=== PATIENT | female | born 1990 | race Caucasian/White ===

== ENCOUNTER 2023-02-07 20:01 | Observation (INO) ==
[2023-02-07] MEDS ORDERED: KETOROLAC TROMETHAMINE 15 MG/ML VIAL IV STA (20:16)
[2023-02-07] MEDS ORDERED: ONDANSETRON INJ 2 MG/ML 2 ML VIAL IV STA (20:16)
[2023-02-07] MEDS ORDERED: MoRPHine SULFATE 2 MG/ML CARP IV STA (20:16)
[2023-02-07] MEDS ORDERED: SODIUM CHLORIDE 0.9% 1000ML 1,000 ML IV STA (20:16)
--- NOTE | 2023-02-07 20:21 | Emergency Department Note ---
Impression & Plan RUQ abdominal pain, Leukocytosis, Vomiting, Hematuria, Hypertension ED Provider Note NAME: NGOC HARRINGTON AGE: 32 SEX: F : 1990 ARRIVES VIA: Walk-In INFORMANT: [Patient] ED PROVIDER(S): [Cyril Barnard MD] CHIEF COMPLAINT: Abdominal pain HISTORY OF PRESENT ILLNESS: The patient is a 32-year-old female who states that she woke up this morning with some upper abdominal pain. She felt better after some Tylenol but then things worsened in the midday and throughout this afternoon. The pain is going into her back and mostly on the right. She vomited when she got here to the ED. There has been no fever, no cough or congestion or shortness of breath. No diarrhea or urinary complaints. The patient has had a kidney stone before for which she required lithotripsy. The patient admits that she was at the [place] [facility] earlier but was not seen, she left there and came to our hospital. Of note, the patient has a history of an elevated white blood cell count, she has been referred to hematology. PMHx/PSHx: See Below SOCIAL HISTORY: See Below. PHYSICAL EXAM: GENERAL: Patient is in no acute distress. HEENT: No acute trauma, normocephalic atraumatic, mucous membranes moist, no nasal congestion. NECK: No stridor, no adenopathy, no meningismus, trachea is midline. LUNGS: Clear to auscultation bilaterally, no wheeze, no rhonchi, breath sounds equal. HEART: Without murmurs gallops or rubs, regular rate and rhythm. ABDOMEN: Soft, moderately tender in the right upper quadrant, no distention. No peritonitis. EXTREMITIES: No cyanosis or edema, full range of motion of all the joints w ithout pain or difficulty, no signs for acute trauma. NEUROLOGIC: Oriented x 3, no acute motor or sensory deficits, no focal weakness. SKIN: No rash, no jaundice, no diaphoresis. Back: No flank discomfort with percussion. DIFFERENTIAL DIAGNOSIS: Biliary colic, acute cholecystitis, pancreatitis, renal colic, UTI, appendicitis, gastritis, ulcer, among others. EMERGENCY DEPARTMENT COURSE/PROCEDURES: Prior/Outside records reviewed: None. ECG per my interpretation: Indication was abdominal pain. The ECG shows a normal sinus rhythm with a rate of 87. There is some baseline artifact. There is no ST elevation, no PVCs but the QTc is 469 Continuous Cardiac Monitoring per my interpretation: An order was placed for continuous cardiac monitoring. The monitor shows a rate of 88 with normal sinus rhythm. MEDICAL DECISION MAKING: There is a moderate leukocytosis, this could be consistent with infection or potentially just her pain and vomiting. There was a normal hemoglobin. Platelet count slightly elevated at 468. No renal failure or significant electr olyte abnormality. No concerning liver enzyme elevation. No evidence for pancreatitis. testing was negative. ECG showed a normal sinus rhythm, no ischemia. Cardiac enzyme testing x1 was not consistent with acute cardiac injury. Urinalysis showed some contamination and some hematuria. No findings of infection. COVID test returned negative. Chest film per my review does not show mediastinal widening, pneumonia or pneumothorax. There was no free air. Gallbladder and renal ultrasounds were ordered. On exam, the patient was tender in the right upper quadrant. She was hypert ensive. Patient received IV saline, 1 L. She received IV Zofran, IV Toradol and IV morphine. Additional IV morphine was ordered as needed. She was given IV labetalol for her elevated blood pressure. The patient's ultrasound results are still pending. At this point, the case will be assumed by Dr. Magallon at the change of shift. Of note, the patient is feeling improved since being medicated. She still has some pain in the right upper quadrant but it is less intense compared to when she first arrived. No further vomiting. DISPOSITION: Currently still a patient in our ED. Past Med/Surg History Medical History COVID Hypertension Obesity Surgical History (Updated 06/06/21 @ 07:07 by Santino De Guzman) No significant past surgical history Social History Smoking Status: Never smoker Preferred Language: Portuguese marital status: current occupational status: employed Feels Safe at Home: Yes Allergies Allergies Allergy/AdvReac Type Severity Reaction Status Date / Time No Known Allergies Allergy Unverified 06/05/21 19:58 Home Meds Home Medications Medication Instructions Recorded Confirmed amlodipine 10 mg tablet 10 mg PO DAILY 06/05/21 02/07/23 atorvastatin 10 mg tablet 10 mg PO DAILY 06/05/21 02/07/23 hydrochlorothiazide 12.5 mg capsule 12.5 mg PO DAILY 06/05/21 02/07/23 losartan 50 mg tablet 50 mg PO DAILY 06/05/21 02/07/23 norgestimate 0.18 mg/0.215 mg/0.25 1 tab PO DAILY 06/05/21 02/07/23 mg-ethinyl estradiol 25 mcg tablet ([id number]) Results & Data (ED) Vital Signs Vital Signs - 24 hr 02/07/23 20:04 02/07/23 21:02 02/07/23 21:01 Temperature 36.5 C Temperature Source Temporal Artery Scan Pulse Rate 111 H 85 87 Pulse Rate from SpO2 Sensor Pulse Rhythm Regular Respiratory Rate 18 Respiratory Effort / Characteristics Non-Labored Spontaneous Respiratory Depth Normal Respiratory Pattern Regular Blood Pressure 174/111 H Blood Pressure Mean 132 Blood Pressure Position Sitting Pulse Oximetry 99 97 Oxygen Delivery Method Room Air Sepsis Recent Fever Within 48 Hours No Sepsis New/Unexplained Change in Mental Status N/A Sepsis Action Taken by Nursing No Action Required 02/07/23 21:02 02/07/23 21:02 02/07/23 21:10 Temperature Temperature Source Pulse Rate 91 H 87 Pulse Rate from SpO2 Sensor 86 Pulse Rhythm Respiratory Rate 17 27 H Respiratory Effort / Characteristics Respiratory Depth Respiratory Pattern Blood Pressure 178/114 H Blood Pressure Mean 135 Blood Pressure Position Pulse Oximetry 97 Oxygen Delivery Method Room Air Sepsis Recent Fever Within 48 Hours Sepsis New/Unexplained Change in Mental Status Sepsis Action Taken by Nursing 02/07/23 21:30 02/07/23 21:30 02/07/23 22:00 Temperature Temperature Source Pulse Rate 76 Pulse Rate from SpO2 Sensor 77 Pulse Rhythm Respiratory Rate 22 Respiratory Effort / Characteristics Respiratory Depth Respiratory Pattern Blood Pressure 154/105 H 154/100 H Blood Pressure Mean 128 116 Blood Pressure Position Pulse Oximetry 96 Oxygen Delivery Method Room Air Sepsis Recent Fever Within 48 Hours Sepsis New/Unexplained Change in Mental Status Sepsis Action Taken by Nursing 02/07/23 22:00 Temperature Temperature Source Pulse Rate 73 Pulse Rate from SpO2 Sensor 74 Pulse Rhythm Respiratory Rate 20 Respiratory Effort / Characteristics Respiratory Depth Respiratory Pattern Blood Pressure Blood Pressure Mean Blood Pressure Position Pulse Oximetry 95 Oxygen Delivery Method Room Air Sepsis Recent Fever Within 48 Hours Sepsis New/Unexplained Change in Mental Status Sepsis Action Taken by Usp Medications Current Medication List: was personally reviewed by me Laboratory Data Attestation: I reviewed the patient's lab results. 02/07/23 20:53 02/07/23 20:53 Lab Results 02/07/23 02/07/23 02/07/23 Range/Units 20:25 20:25 20:53 WBC (4.8-10.8) K/ul RBC (4.20-5.40) M/uL Hgb (12.0-16.0) g/dl Hct (37.0-47.0) % MCV (80.0-100.0) fL MCH (25.0-34.0) pg MCHC (32.0-36.0) g/dL RDW Std Deviation (36.4-46.3) fL RDW Coeff of Marnie (11.5-14.5) % Plt Count (130-400) K/uL MPV (9.4-12.4) fL Immature Gran % (Auto) % Neut % (Auto) % Lymph % (Auto) % [place] % (Auto) % Eos % (Auto) % Baso % (Auto) % Neut # (Auto) (1.40-6.50) K/uL Lymph # (Auto) (1.2-3.4) K/uL [place] # (Auto) (0.11-0.59) K/uL Eos # (Auto) (0-0.50) K/uL Baso # (Auto) (0-0.2) K/uL Immature Gran # (Auto) (0.01-0.20) K/uL Sodium (136-145) mmol/L Potassium (3.5-5.1) mmol/L Chloride (98-107) mmol/L Carbon Dioxide (21-32) mmol/L Anion Gap (3-11) BUN (6-23) mg/dl Creatinine (0.6-1.2) mg/dl Est Cr Clr Drug Dosing ml/min Est GFR ( Amer) ml/min Est GFR (Non-Af Amer) ml/min BUN/Creatinine Ratio (10-20) Glucose (70-99(Fasting)) mg/dl Calcium (8.6-10.3) mg/dl Total Bilirubin (0.2-1.0) mg/dl AST (13-39) U/L ALT (7-52) U/L Alkaline Phosphatase (34-104) U/L Troponin I High Sens (0-14) pg/ml Total Protein (6.0-8.3) gm/dl Albumin (3.4-5.0) gm/dl Globulin (2.5-4.0) gm/dl Albumin/Globulin Ratio (0.9-2) Lipase (11-82) U/L HCG, Qual Negative (Negative) Urine Color Yellow Urine Appearance Cloudy A (Clear) Urine pH 5.0 (4.5-7.5) Ur Specific [place] 1.023 (1.000-1.030) Urine Protein 2+ H (Negative) Urine Glucose (UA) Negative (Negative) Urine Ketones Negative (Negative) Urine Blood 3+ H (Negative) Urine Nitrite Negative (Negative) Urine Bilirubin Negative (Negative) Urine Urobilinogen Negative (Negative) Ur Leukocyte Esterase Negative (Negative) Urine WBC (Auto) 1-5 (0-5) /hpf Urine RBC (Auto) 5-10 H (0-4) /hpf U Hyaline Cast (Auto) 1-5 (0-5) /lpf U Epithel Cells (Auto) >30 H (0-5) /lpf Urine Bacteria (Auto) Negative (Negative) Urine Yeast Not Reportable SARS-CoV-2, RNA, NAAT NEGATIVE (NEGATIVE) 02/07/23 02/07/23 Range/Units 20:53 20:53 WBC 17.19 H (4.8-10.8) K/ul RBC 5.87 H (4.20-5.40) M/uL Hgb 14.8 (12.0-16.0) g/dl Hct 44.3 (37.0-47.0) % MCV 75.5 L (80.0-100.0) fL MCH 25.2 (25.0-34.0) pg MCHC 33.4 (32.0-36.0) g/dL RDW Std Deviation 36.4 (36.4-46.3) fL RDW Coeff of Marnie 13.6 (11.5-14.5) % Plt Count 468 H (130-400) K/uL MPV 8.5 L (9.4-12.4) fL Immature Gran % (Auto) 0.3 % Neut % (Auto) 85.0 % Lymph % (Auto) 9.9 % [place] % (Auto) 4.2 % Eos % (Auto) 0.2 % Baso % (Auto) 0.4 % Neut # (Auto) 14.59 H (1.40-6.50) K/uL Lymph # (Auto) 1.71 (1.2-3.4) K/uL [place] # (Auto) 0.72 H (0.11-0.59) K/uL Eos # (Auto) 0.04 (0-0.50) K/uL Baso # (Auto) 0.07 (0-0.2) K/uL Immature Gran # (Auto) 0.06 (0.01-0.20) K/uL Sodium 137 (136-145) mmol/L Potassium 3.9 (3.5-5.1) mmol/L Chloride 101 (98-107) mmol/L Carbon Dioxide 23 (21-32) mmol/L Anion Gap 13 H (3-11) BUN 15 (6-23) mg/dl Creatinine 0.80 (0.6-1.2) mg/dl Est Cr Clr Drug Dosing 123.1 ml/min Est GFR ( Amer) 111.5 ml/min Est GFR (Non-Af Amer) 96.2 ml/min BUN/Creatinine Ratio 18.8 (10-20) Glucose 135 H (70-99(Fasting)) mg/dl Calcium 10.0 (8.6-10.3) mg/dl Total Bilirubin 0.6 (0.2-1.0) mg/dl AST 26 (13-39) U/L ALT 22 (7-52) U/L Alkaline Phosphatase 101 (34-104) U/L Troponin I High Sens 3.2 (0-14) pg/ml Total Protein 8.5 H (6.0-8.3) gm/dl Albumin 4.2 (3.4-5.0) gm/dl Globulin 4.3 H (2.5-4.0) gm/dl Albumin/Globulin Ratio 1.0 (0.9-2) Lipase 15 (11-82) U/L HCG, Qual (Negative) Urine Color Urine Appearance (Clear) Urine pH (4.5-7.5) Ur Specific [place] (1.000-1.030) Urine Protein (Negative) Urine Glucose (UA) (Negative) Urine Ketones (Negative) Urine Blood (Negative) Urine Nitrite (Negative) Urine Bilirubin (Negative) Urine Urobilinogen (Negative) Ur Leukocyte Esterase (Negative) Urine WBC (Auto) (0-5) /hpf Urine RBC (Auto) (0-4) /hpf U Hyaline Cast (Auto) (0-5) /lpf U Epithel Cells (Auto) (0-5) /lpf Urine Bacteria (Auto) (Negative) Urine Yeast SARS-CoV-2, RNA, NAAT (NEGATIVE) Administered Medications Discontinued Medications Sodium Chloride (Nss 1000ml) 1,000 mls @ 999 mls/hr IV .Q1H1M STA Stop: 02/07/23 21:16 Last Admin: 02/07/23 20:57 Dose: 999 mls/hr Documented By: Ketorolac Tromethamine (Ketorolac Tromethamine 15 Mg/Ml Vial) 15 mg IV NOW STA Stop: 02/07/23 20:17 Last Admin: 02/07/23 20:57 Dose: 15 mg Documented By: Morphine Sulfate (Morphine Sulfate 2 Mg/Ml Carp) 2 mg IV NOW STA Stop: 02/07/23 20:17 Last Admin: 02/07/23 20:57 Dose: 2 mg Documented By: Ondansetron HCl (Ondansetron Inj 2 Mg/Ml 2 Ml Vial) 4 mg IV NOW STA Stop: 02/07/23 20:17 Last Admin: 02/07/23 20:57 Dose: 4 mg Documented By: Imaging Data My Impression: Chest x-ray: Per my review, there is no mediastinal widening, pneumonia, pneumothorax or free air. Discharge Plan Visit Data Chief Complaint: Abdominal Pain Stated Complaint: ABDOMINAL PAIN RADIATING INTO BACK ED Provider: Cyril Barnard Discharge Problem: RUQ abdominal pain, Leukocytosis, Vomiting, Hematuria, Hypertension Patient Disposition: Still a Patient Condition: Good Forms Stand Alone Forms: My [facility] [employer] Prescriptions Prescriptions: No Action atorvastatin 10 mg tablet 10 mg PO DAILY amlodipine 10 mg tablet 10 mg PO DAILY hydrochlorothiazide 12.5 mg capsule 12.5 mg PO DAILY norgestimate-ethinyl estradiol [[id number]] 0.18/0.215/0.25 mg-25 mcg tablet 1 tab PO DAILY losartan 50 mg tablet 50 mg PO DAILY Referrals Referrals: Yanni Colvin PA-C [Primary Care Provider] -
[2023-02-07 20:41] LABS: Appearance Urine Cloudy (Clear); Bacteria Urine Automated Negative (Negative); Bilirubin Urine Negative (Negative); Blood Urine 3+ (Negative); Color Urine Yellow; Epithelial Cell Urine Auto >30 /lpf (0-5); Glucose Urine UA Negative (Negative); Ketones Urine Negative (Negative); Leukocyte Esterase Urine Negative (Negative); Nitrite Urine Negative (Negative); Protein Urine 2+ (Negative); Specific Gravity Urine 1.023 (1.000-1.030); Urobilinogen Urine Negative (Negative)
[2023-02-07 21:27] LABS: Pregnancy Test, Serum Negative (Negative)
[2023-02-07 21:30] LABS: Basophils # (auto) 0.07 K/uL (0-0.2); Basophils % (auto) 0.4 %; Eosinophils # (auto) 0.04 K/uL (0-0.50); Eosinophils % (auto) 0.2 %; Hematocrit (blood only) 44.3 % (37.0-47.0); Hemoglobin 14.8 g/dl (12.0-16.0); Immature Granulocytes # (auto) 0.06 K/uL (0.01-0.20); Immature Granulocytes % (auto) 0.3 %; Lymphocytes # (auto) 1.71 K/uL (1.2-3.4); Lymphocytes % (auto) 9.9 %; Mean Corpuscular Hemoglobin 25.2 pg (25.0-34.0); Mean Corpuscular Hgb Conc 33.4 g/dL (32.0-36.0); Mean Corpuscular Volume 75.5 fL (80.0-100.0); Mean Platelet Volume 8.5 fL (9.4-12.4); Monocytes # (auto) 0.72 K/uL (0.11-0.59); Monocytes % (auto) 4.2 %; Neutrophils # (auto) 14.59 K/uL (1.40-6.50); Platelet Count 468 K/uL (130-400); RDW Coefficient of Variation 13.6 % (11.5-14.5); RDW Standard Deviation 36.4 fL (36.4-46.3); Red Blood Count 5.87 M/uL (4.20-5.40); White Blood Count 17.19 K/ul (4.8-10.8)
[2023-02-07 21:37] LABS: Albumin Level 4.2 gm/dl (3.4-5.0); BUN Creatinine Ratio 18.8 (10-20); Bilirubin,Total 0.6 mg/dl (0.2-1.0); Creatinine Clr Calc Pharmacy 123.1 ml/min; Est GFR (African American) 111.5 ml/min; Est GFR (Non-African American) 96.2 ml/min; Globulin 4.3 gm/dl (2.5-4.0); Potassium 3.9 mmol/L (3.5-5.1); Total Protein 8.5 gm/dl (6.0-8.3)
[2023-02-07 21:43] LABS: Troponin I High Sensitivity 3.2 pg/ml (0-14)
[2023-02-07] MEDS ORDERED: LABETALOL HCL IV 5 MG/ML 20ML IV STA (21:49)
[2023-02-07] MEDS: MoRPHine SULFATE 4 MG/ML 1 ML CARP\\VIAL IV PRN (22:37)
[2023-02-08] MEDS ORDERED: GI COCKTAIL ED USE PO ONE (00:26)
--- NOTE | 2023-02-08 01:22 | Ultrasound Report ---
Exam(s): US ABDOMEN COMPLETE EXAM: US Abdomen Complete CLINICAL HISTORY: Reason for exam: ruq pain, vomiting. TECHNIQUE: Real-time ultrasound of the abdomen with image documentation. COMPARISON: No relevant prior studies available. FINDINGS: Liver: Hepatic steatosis. No intrahepatic bile duct dilation. Gallbladder: Distended gallbladder with sludge. There appears to be a stone in the neck of the gallbladder. There is no gallbladder wall thickening or surrounding fluid. Common bile duct: Unremarkable as visualized. No stones. No dilation. Pancreas: Not well seen. Kidneys: The right kidney appears echogenic with marked cortical thinning. The left kidney is unremarkable. No hydronephrosis. No stones. Spleen: Unremarkable. No splenomegaly. Aorta: Unremarkable. No abdominal aortic aneurysm. Inferior vena cava: Unremarkable. Bladder: Normal in appearance. Left ureteral jet identified. IMPRESSION: Distended gallbladder containing sludge and a stone in the region of the neck. Echogenic right kidney with marked cortical thinning. Hepatic steatosis. Electronically signed by: Harley Guillermo MD 02/08/23 01:21 AM
[2023-02-08] MEDS ORDERED: cefOXitin 2,000 MG/60 ML BAG IV STA (01:24)
[2023-02-08] MEDS: MoRPHine SULFATE 4 MG/ML 1 ML CARP\\VIAL IV PRN (01:27)
--- NOTE | 2023-02-08 01:28 | Emergency Department Note ---
ED Visit Note Patient was signed out to me by Dr. Barnard awaiting ultrasound. Ultrasound showed a distended gallbladder with a stone in the neck. Consulted Patrice Hermosillo from general surgery for further evaluation management and admission in light of right upper quadrant pain with a leukocytosis 17,000 and concern for biliary colic and possible cholecystitis. Patient was covered with cefoxitin and updated bedside. .
--- NOTE | 2023-02-08 01:54 | History & Physical Report ---
Date of Service February 08, 2023 Assessment & Plan (1) Cholelithiasis: Plan: I discussed with the treating emergency room physician and due to the patient's clinical presentation and findings on imaging the patient will be admitted to the hospital proceeding as follows: We will implement n.p.o. status Analgesics will be provided Antiemetics be provided Intravenous fluids to be provided for hydration We will initiate antibiotics. Treating emergency room physician has already ordered cefoxitin which we will continue I suspect the patient is suffering from biliary colic as it. She does have a gallstone in the gallbladder neck. I feel the patient would benefit from a cholecystectomy. I have outlined the risks, benefits, alternatives, and expected postoperative course with the patient and she wishes to proceed. We have tentatively planned her for cholecystectomy with Dr. Weiner on 02/08/2023. A COVID test has already been checked and is negative Serial labs will be followed Additional recommendations be forthcoming based on operative findings and her recovery thereafter SCDs were used for DVT prevention, no chemical means due to planned surgery She will be a level 1 full code As above. clinically c/w cholecystitis. discussed options/risks ( bleeding/infection/blood clots/bile duct injury or leak/injury to other organs/dvt/pe/mi/cva etc...questions answered. pt agreeable. will proceed with keshawn bdeoya this AM History of Present Illness Chief Complaint: Abdominal pain Primary Care Provider: Yanni Colvin This is a 32-year-old female who presented to the emergency department [facility] secondary to abdominal pain. Patient says that the morning of 02/07/2023 she developed some right upper quadrant abdominal pain with associated nausea and vomiting. She said that the pain radiated to her back somewhat. She felt as though the pain improved well she took a hot shower and seemed to be worse when she was in colder temperatures. She denies any fevers, shakes, or chills. The patient notes that for approximate the past 2 years she does get postprandial pain of a similar nature although not as severe which usually resolves within 2 to 3 hours. She notes that the pain that resulted in her presentation to the emergency department was much more severe than what she usually experiences. The patient notes that she has never had any abdominal surgeries. Since arrival to the hospital the patient has had labs and imaging which I independently reviewed. The patient did have a chest x-ray that did not show any evidence of pneumonia. Patient also had a ultrasound of the gallbladder. This study demonstrated the patient had a distended gallbladder with sludge as well as a gallstone that appeared to be in the neck of the gallbladder. There is no pericholecystic fluid or gallbladder wall thickening. There is no dilatation of the common bile duct. Labs include a CBC her white blood cell count was elevated at 17.1. Hemoglobin and hematocrit were within normal range. Platelet count was 4 68,000. Chemistry profile showed sodium and potassium are normal. The patient's BUN and creatinine were also normal. LFTs were normal including the bilirubin, AST, ALT, and alkaline phosphatase, all not elevated. A troponin was checked and was nonelevated. Lipase was nonelevated. A test was negative. A urinalysis was not indicative of infection. A COVID test was performed and was noted to be negative. An EKG was performed that showed normal sinus rhythm without changes indicative of acute ischemia. At the time of my interview the patient is resting comfortably in bed and she was in no distress. Concerning past surgical history the patient says that she has only had lithotripsy for history of kidney stones and again specifically denies any abdominal surgeries Past medical history is significant for nephrolithiasis, hypertension, and leukocytosis. Concerning the patient's leukocytosis she notes that she has had a persistent leukocytosis for approximately 3 years and has seen a hematology/training specialist in [place]. Patient says that she has had a bone marrow biopsy in the past and to the best of her knowledge there is no significant pathology and she has not required any specific treatment for this problem. 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 Concerning family history she says that her grandfather suffered from coronary artery disease diagnosed in his 40s. Allergies Allergy/AdvReac Type Severity Reaction Status Date / Time No Known Allergies Allergy Verified 02/08/23 06:57 Home Medications Medication Instructions Recorded Confirmed Type amlodipine 10 mg tablet 10 mg PO DAILY 06/05/21 02/07/23 History atorvastatin 10 mg tablet 10 mg PO DAILY 06/05/21 02/07/23 History hydrochlorothiazide 12.5 mg capsule 12.5 mg PO DAILY 06/05/21 02/07/23 History losartan 50 mg tablet 50 mg PO DAILY 06/05/21 02/07/23 History norgestimate 0.18 mg/0.215 mg/0.25 1 tab PO DAILY 06/05/21 02/07/23 History mg-ethinyl estradiol 25 mcg tablet ([id number]) Past Med/Surg History Medical History COVID History of kidney stones Hypertension Obesity Surgical History History of cystoscopy removal right kidney stone Social History Smoking Status: Never smoker Second Hand Exposure: No; Do You Dip or Chew Tobacco: No; Hx Alcohol Use: Yes Hx Substance Use: No Preferred Language: Welsh Communication Ability: Effective Turning 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 Operator Required: No Beliefs That Will Affect Care: None marital status: Current Living Situation: Spouse current occupational status: employed Other Information That Helps Us Care for You: No Feels Safe at Home: Yes Safety Concerns: Feels Safe At This Time Assistive Devices: None Review of Systems Constitutional: no fever and no chills Ear, Nose, Mouth, Throat: no hearing loss Respiratory: no cough and no dyspnea Cardiovascular: no chest pain Gastrointestinal: as per Subjective / HPI Genitourinary: no dysuria Musculoskeletal: no back pain Integumentary: no rash Neurologic: no localized weakness Physical Exam Constitutional: WD/WN, vitals as above Eyes: + anicteric sclerae ENMT: Ears: no hearing impairment and no external ear abnormality Mouth: no oropharynx abnormality Sublingual jaundice is absent Neck: trachea midline Respiratory: normal respiratory effort, lungs clear to auscultation Cardiovascular: Rate/Rhythm: regular rate and regular rhythm Vessels: dorsalis pedis pulses present and radial pulses present Gastrointestinal (Abdomen): Abdomen is soft and nonrigid and it is nondistended. Bowel sounds are present. There is no rebound tenderness or guarding. The patient did have pain with palpation in the right upper quadrant with a positive Ruiz sign. Musculoskeletal: No calf tenderness Skin: no rashes Neurologic: moves all extremities Psychiatric: A+Ox3, euthymic affect Results & Data Results & Data Vital Signs (Past 12 Hours) Vital Signs Temp Pulse Resp BP Pulse Ox O2 Del Method 02/08/23 01:00 79 02/08/23 00:30 73 18 97 Room Air 02/08/23 00:14 93 H 02/08/23 00:14 161/103 H 02/07/23 22:47 146/95 H 02/07/23 22:47 86 18 96 Room Air 02/07/23 22:30 88 18 98 Room Air 02/07/23 22:30 158/106 H 02/07/23 22:00 73 20 95 Room Air 02/07/23 22:00 154/100 H 02/07/23 21:30 76 22 96 Room Air 02/07/23 21:30 154/105 H 02/07/23 21:10 87 27 H 97 Room Air 02/07/23 21:02 91 H 17 02/07/23 21:02 178/114 H 02/07/23 21:01 87 02/07/23 21:02 85 97 02/07/23 20:04 36.5 C 111 H 18 174/111 H 99 Room Air PG Care Time/CCT Total # of Minutes Spent Total Time Spent with Patient: Total time spent is greater than 50% in coordination of care (as documented) at patient's floor/unit and/or counseling patient: Coding Level of Care Code 15088 INT INP/OBS CARE Diagnoses Cholelithiasis K80.20
[2023-02-08] MEDS ORDERED: MoRPHine SULFATE 4 MG/ML 1 ML CARP\\VIAL IV PRN ×2 (01:55→09:29)
[2023-02-08] MEDS ORDERED: ONDANSETRON INJ 2 MG/ML 2 ML VIAL IV PRN ×2 (01:55→07:04)
[2023-02-08] MEDS ORDERED: LACTATED RINGER'S 1,000 ML IV SCH ×2 (02:00→09:29)
[2023-02-08] MEDS: ACETAMINOPHEN 1,000 MG/100 ML VIAL IV PRN ×2 (02:20→09:55)
[2023-02-08] MEDS ORDERED: HYDROmorphone INJ 0.5 MG/0.5 ML SYR IV ONE (05:01)
[2023-02-08 06:06] LABS: Basophils # (auto) 0.05 K/uL (0-0.2); Basophils % (auto) 0.3 %; Eosinophils # (auto) 0.18 K/uL (0-0.50); Eosinophils % (auto) 1.2 %; Hematocrit (blood only) 40.6 % (37.0-47.0); Hemoglobin 13.4 g/dl (12.0-16.0); Immature Granulocytes # (auto) 0.06 K/uL (0.01-0.20); Immature Granulocytes % (auto) 0.4 %; Lymphocytes # (auto) 2.77 K/uL (1.2-3.4); Lymphocytes % (auto) 19.2 %; Mean Corpuscular Hemoglobin 25.2 pg (25.0-34.0); Mean Corpuscular Volume 76.5 fL (80.0-100.0); Mean Platelet Volume 8.3 fL (9.4-12.4); Monocytes # (auto) 1.26 K/uL (0.11-0.59); Monocytes % (auto) 8.7 %; Neutrophils # (auto) 10.12 K/uL (1.40-6.50); Neutrophils % (auto) 70.2 %; Platelet Count 414 K/uL (130-400); RDW Coefficient of Variation 13.5 % (11.5-14.5); RDW Standard Deviation 37.2 fL (36.4-46.3); Red Blood Count 5.31 M/uL (4.20-5.40); White Blood Count 14.44 K/ul (4.8-10.8)
[2023-02-08 06:19] LABS: Albumin Globulin Ratio 1.1 (0.9-2); Albumin Level 3.7 gm/dl (3.4-5.0); BUN Creatinine Ratio 15.9 (10-20); Bilirubin,Total 0.6 mg/dl (0.2-1.0); Calcium 8.8 mg/dl (8.6-10.3); Creatinine Clr Calc Pharmacy 143.1 ml/min; Est GFR (African American) 131.6 ml/min; Est GFR (Non-African American) 113.6 ml/min; Globulin 3.3 gm/dl (2.5-4.0); Potassium 3.6 mmol/L (3.5-5.1)
--- NOTE | 2023-02-08 06:54 | XRay Report ---
XR chest 1V portable CLINICAL HISTORY: abd pain TECHNIQUE: Single frontal radiograph of the chest was obtained. Comparison: Comparison is made to chest radiograph 04/22/2016 FINDINGS: No lines and tubes are seen. The cardiomediastinal silhouette is normal. The lungs are clear. No evid ence of pleural effusion or pneumothorax. IMPRESSION: No acute chest disease. ACT 112: Negative or not required by law. Electronically signed by: Prem Medina M.D. 02/08/2023 6:52 AM
--- NOTE | 2023-02-08 07:02 | Anesthesiology Consultation ---
Date of Service February 08, 2023 Assessment & Plan Chart Review Chart Review: Acceptable Risk for Surgery Consults Requested none ASA ASA2 Proposed Anesthesia Anesthesia Type: General Risk / Benefits Reviewed With: PT / POA / Parent / Guardian, Accepts Plan and Informed Consent Obtained History Surgery Operation Date: 02/08/23 09:10 Proposed Procedures p Laparoscopic Cholecystectomy Possible Open - Gunnar Weiner DO Height/Weight Height: 5 ft 7 in Weight: 104.9 kg Allergies Allergy/AdvReac Type Severity Reaction Status Date / Time No Known Allergies Allergy Verified 02/08/23 06:57 Medications Home Medications Medication Instructions Recorded Confirmed Last Taken amlodipine 10 mg tablet 10 mg PO DAILY 06/05/21 02/07/23 Unknown atorvastatin 10 mg tablet 10 mg PO DAILY 06/05/21 02/07/23 Unknown hydrochlorothiazide 12.5 mg capsule 12.5 mg PO DAILY 06/05/21 02/07/23 Unknown losartan 50 mg tablet 50 mg PO DAILY 06/05/21 02/07/23 Unknown norgestimate 0.18 mg/0.215 mg/0.25 1 tab PO DAILY 06/05/21 02/07/23 Unknown mg-ethinyl estradiol 25 mcg tablet ([id number]) Active Medications Generic Name Dose Route Start Last Admin Trade Name Freq PRN Reason Stop Dose Admin Acetaminophen 1,000 mg in 100 mls @ 400 mls/hr 02/08/23 01:55 02/08/23 02:38 Ofirmev IV 02/11/23 01:54 Infused Q8H PRN Infusion moderate pain Lactated Ringer's 1,000 mls @ 100 mls/hr 02/08/23 02:00 02/08/23 02:59 Lr IV 03/10/23 01:59 100 mls/hr .Q10H BRENNA Administration Morphine Sulfate 3 mg 02/08/23 01:55 02/08/23 04:20 Morphine Sulfate 4 Mg/Ml 1 Ml Carp\Vial IV 02/22/23 01:54 3 mg Q3H PRN Administration severe pain NPO Date Last Intake of Fluids: 02/07/23 Time Last Intake of Fluids: 19:00 Date Last Intake of Solids: 02/07/23 Time Last Intake of Solids: 12:00 Past Medical History Medical History COVID History of kidney stones Hypertension Obesity Exercise / Class Metabolic Activity II 4-5 Yardwork/Stairs/Walk up hill Past Surgical History Surgical History History of cystoscopy removal right kidney stone Past Anesthesia History No Hx of Anesthesia Complications and No Family Hx of Anesthesia Complications History of PONV No Hx of PONV and Hx of Motion Sickness Social History Smoking Status: Never smoker Do You Dip or Chew Tobacco: No Hx Alcohol Use: Yes alcohol intake frequency: holidays/special occasions only Hx Substance Use: No substance use type: does not use Physical Exam Vital Signs Last Vital Signs Temp 98.1 F 02/08/23 02:55 Pulse 91 H 02/08/23 02:55 Resp 18 02/08/23 02:55 BP 155/95 H 02/08/23 02:55 Pulse Ox 99 02/08/23 02:55 O2 Del Method Room Air 02/08/23 02:55 ENMT Mouth: no dentition abnormality Thyromental Distance: > or= 3.5 Finger Breadths Mallampati Class: II Neck normal visual inspection Respiratory normal respiratory effort Auscultation: lungs clear to auscultation bilaterally Cardiovascular Rate/Rhythm: regular rate and regular rhythm Testing Laboratory Results 02/08/23 05:45 02/08/23 05:45 Urine Color Yellow 02/07/23 20:25 Urine Appearance Cloudy (Clear) A 02/07/23 20:25 Urine pH 5.0 (4.5-7.5) 02/07/23 20:25 Ur Specific [place] 1.023 (1.000-1.030) 02/07/23 20:25 Urine Protein 2+ (Negative) H 02/07/23 20:25 Urine Glucose (UA) Negative (Negative) 02/07/23 20:25 Urine Ketones Negative (Negative) 02/07/23 20:25 Urine Nitrite Negative (Negative) 02/07/23 20:25 Ur Leukocyte Esterase Negative (Negative) 02/07/23 20:25 Urine WBC (Auto) 1-5 /hpf (0-5) 02/07/23 20:25 Urine RBC (Auto) 5-10 /hpf (0-4) H 02/07/23 20:25 U Hyaline Cast (Auto) 1-5 /lpf (0-5) 02/07/23 20:25 U Epithel Cells (Auto) >30 /lpf (0-5) H 02/07/23 20:25 Urine Bacteria (Auto) Negative (Negative) 02/07/23 20:25
[2023-02-08] MEDS ORDERED: ATROPINE SULFATE 0.1 MG/ML 10ML SYR IV PRN (07:04)
[2023-02-08] MEDS ORDERED: fentaNYL citrate PF 100 MCG/2 ML VIAL IV PRN (07:04)
[2023-02-08] MEDS ORDERED: ePHEDrine sulfate 50 MG/ML AMP IV PRN (07:04)
[2023-02-08] MEDS ORDERED: SCOPOLAMINE 1 MG TDSY TD ONE ×2 (07:05)
[2023-02-08] MEDS ORDERED: BUPIVACAINE/EPINEPHRINE 0.5% MPF 1:200,000 30 ML VIAL ONE (07:22)
[2023-02-08] MEDS: cefOXitin 2,000 MG in DEXTROSE 5% 50 ML IV SCH ×2 (07:47→13:18)
[2023-02-08] MEDS ORDERED: DEXAMETHASONE SOD INJ 4 MG/ML VIAL ONE (08:04)
[2023-02-08] MEDS ORDERED: PROPOFOL IV EMULSION 10 MG/ML 20 ML VIAL IV ONE (08:04)
[2023-02-08] MEDS ORDERED: GLYCOPYRROLATE 0.2 MG/ML VIAL ONE ×2 (08:04→08:07)
[2023-02-08] MEDS ORDERED: NEOSTIGMINE METHYLSULFATE 1 MG/ML 10ML VIAL ONE (08:04)
[2023-02-08] MEDS ORDERED: LIDOCAINE 2% 2 ML VIAL/AMP(20MG/ML) INFIL ONE (08:04)
[2023-02-08] MEDS ORDERED: MIDAZOLAM HCL 1 MG/ML 2ML VIAL ONE (08:04)
[2023-02-08] MEDS ORDERED: ONDANSETRON INJ 2 MG/ML 2 ML VIAL ONE ×2 (08:04→08:06)
[2023-02-08] MEDS ORDERED: fentaNYL citrate PF 100 MCG/2 ML VIAL ONE (08:04)
[2023-02-08] MEDS ORDERED: ROCURONIUM BROMIDE 10 MG/ML 5 ML VIAL IV ONE (08:08)
[2023-02-08] MEDS ORDERED: LARYING-O-JET KIT (LTA) ONE (08:08)
[2023-02-08] MEDS ORDERED: PHENYLEPHRINE 100MCG/ML 5ML SYR ONE (08:19)
--- NOTE | 2023-02-08 08:48 | Operative Report ---
PG Post Operative Report Pre & Post Diagnosis Operation Date: 02/08/23 09:10 Pre-Op Diagnosis: Cholelithiasis Post-Op Diagnosis: Calculous cholecystitis I identified the patient and participated in the time-out.: Yes Procedure Operation Date: 02/08/23 09:10 Actual Procedures p Laparoscopic Cholecystectomy (Not Applicable) - Gunnar Weiner DO Surgeon Gunnar Weiner DO Archaeology Professor aleshia Avila Estimated Blood Loss 50 Findings Consistent with Post-Op Diagnosis Specimens gallbladder Description of Procedure After informed consent was obtained the patient was taken to the operating room and placed in the supine position. After successful intubation the abdomen was sterilely prepped and draped in usual fashion. A periumbilical incision was made with an 11 blade scalpel and carried down through the soft tissue using electrocautery. The anterior rectus fascia was opened using electrocautery and 2 #0 Vicryl stay sutures were placed. The peritoneum was elevated with hemostats and incised under direct vision using Metzenbaum scissors. A finger sweep was performed and a 12 mm Pickering trocar was placed. The abdomen was insufflated to 18 mmHg. The laparoscope was inserted and the abdomen was examined in 360. The gallbladder was acutely inflamed, otherwise no gross abnormalities were identified. A subxiphoid 5 mm port and 2 right upper quadrant 5 mm ports were placed under direct vision. The patient was placed in a reverse Trendelenburg position and slightly airplaned to the left. The gallbladder was very inflamed and distended. I began by draining about 10 cc of bile so that we could grasp it. The liver was also in the way of visualization therefore I placed the fifth left upper quadrant 5 mm trocar to retract the left lobe of the liver out of the way. The gallbladder was grasped and elevated superiorly and laterally. A [place] dissector was used to take down adhesions around the neck of the gallbladder. The cystic duct was identified and skeletonized. It was clipped twice proximally and once distally and transected using a laparoscopic scissor. In similar fashion the cystic artery was identified and skeletonized clipped and divided. There was a small posterior branch that was clipped and divided as well. The gallbladder was removed from the gallbladder fossa with electrocautery. It was placed into an Endo Catch bag. Thorough irrigation was performed. At the end of the procedure there was adequate hemostasis and no evidence of any bile leaks. A final look around the abdomen showed no other abnormalities. The gallbladder and trochars were all removed and the abdomen was desufflated. The fascia of the camera port was closed using 0 Vicryl in a ayuonh-ky-xhpit fashion. All the wounds were irrigated and closed using 4-0 Monocryl. Marcaine was injected around them for postoperative analgesia and skin glue used as a dressing. The patient was awaken extubated and transferred to recovery in stable condition. My physician's dental assistant instructor was present throughout the entire case... helped with prepping the patient. With exposure for trocar placement, as well as retracted the gallbladder throughout the case and also assisted with wound closure and dressing placement. I attest to the content of the Intraoperative Record and any orders documented therein. Any exceptions are noted below.
[2023-02-08] MEDS ORDERED: amLODIPine BESYLATE 5 MG TAB PO SCH (09:00)
[2023-02-08] MEDS ORDERED: MoRPHine SULFATE 2 MG/ML CARP IV PRN (09:29)
[2023-02-08] MEDS ORDERED: oxyCODONE/ACETAMINOPHEN 5mg/325mg TAB PO PRN ×2 (09:29)
--- NOTE | 2023-02-08 09:55 | Anesthesiology Progress Note ---
Date of Service February 08, 2023 Anesthesia Post Procedure Vital Signs Vital Signs: Temp Pulse Pulse Pulse Resp BP BP 02/08/23 09:30 98.4 F 83 14 160/90 H 02/08/23 09:20 98.2 F 85 14 142/90 H 02/08/23 09:10 75 18 147/93 H 02/08/23 09:00 94 H 17 150/91 H 02/08/23 08:53 97.9 F 86 18 151/90 H 02/08/23 06:59 98.2 F 96 H 18 168/107 H 02/08/23 02:55 98.1 F 91 H 18 155/95 H 02/08/23 02:38 02/08/23 02:23 79 16 177/90 H 02/08/23 01:00 79 02/08/23 00:30 73 18 02/08/23 00:14 93 H 02/08/23 00:14 161/103 H 02/07/23 22:47 146/95 H 02/07/23 22:47 86 18 02/07/23 22:30 88 18 02/07/23 22:30 158/106 H 02/07/23 22:00 73 20 02/07/23 22:00 154/100 H 02/07/23 21:30 76 22 02/07/23 21:30 154/105 H 02/07/23 21:10 87 27 H 02/07/23 21:02 91 H 17 02/07/23 21:02 178/114 H 02/07/23 21:01 87 02/07/23 21:02 85 02/07/23 20:04 97.7 F 111 H 18 174/111 H Pulse Ox O2 Del Method O2 Flow Rate 02/08/23 09:30 94 Room Air 02/08/23 09:20 93 Room Air 02/08/23 09:10 93 Room Air 02/08/23 09:00 96 Oxymask 5 02/08/23 08:53 98 Oxymask 5 02/08/23 06:59 96 Room Air 02/08/23 02:55 99 Room Air 02/08/23 02:38 Room Air 02/08/23 02:23 97 Room Air 02/08/23 01:00 02/08/23 00:30 97 Room Air 02/08/23 00:14 02/08/23 00:14 02/07/23 22:47 02/07/23 22:47 96 Room Air 02/07/23 22:30 98 Room Air 02/07/23 22:30 02/07/23 22:00 95 Room Air 02/07/23 22:00 02/07/23 21:30 96 Room Air 02/07/23 21:30 02/07/23 21:10 97 Room Air 02/07/23 21:02 02/07/23 21:02 02/07/23 21:01 02/07/23 21:02 97 02/07/23 20:04 99 Room Air Pain Intensity Abdomen: Pain Intensity: 5 Transfer of Care Handoff Completed per policy Notes Mental Status: alert / awake / arousable and participated in evaluation Patient Amnestic to Procedure: Yes Nausea / Vomiting: adequately controlled Pain: adequately controlled Airway Patency, RR, SpO2: stable & adequate BP & HR: stable & adequate Hydration State: stable & adequate Anesthetic Complications: no major complications apparent and Pt Satisfied with anesthetic care
[2023-02-08] MEDS ORDERED: CHECK SCOPOLAMINE PATCH PLACEMENT SCH (16:00)
--- NOTE | 2023-02-09 06:27 | Electrocardiogram Report ---
Test Reason : Blood Pressure : / mmHG Vent. Rate : 087 BPM Atrial Rate : 087 BPM P-R Int : 152 ms QRS Dur : 080 ms QT Int : 390 ms P-R-T Axes : 027 018 031 degrees QTc Int : 469 ms Normal sinus rhythm Normal ECG When compared with ECG of 22-APR-2016 12:03, No significant change was found Confirmed by Glynn Padgett ([id number]) on 02/09/2023 6:27:27 AM Referred By: REFERRED SELF Confirmed By:Gylnn Padgett
--- NOTE | 2023-02-10 11:14 | Discharge Summary ---
Date of Service February 08, 2023 Admission HPI Per Admitting Provider This is a 32-year-old female who presented to the emergency department [facility] secondary to abdominal pain. Patient says that the morning of 02/07/2023 she developed some right upper quadrant abdominal pain with associated nausea and vomiting. She said that the pain radiated to her back somewhat. She felt as though the pain improved well she took a hot shower and seemed to be worse when she was in colder temperatures. She denies any fevers, shakes, or chills. The patient notes that for approximate the past 2 years she does get postprandial pain of a similar nature although not as severe which usually resolves within 2 to 3 hours. She notes that the pain that resulted in her presentation to the emergency department was much more severe than what she usually experiences. The patient notes that she has never had any abdominal surgeries. Since arrival to the hospital the patient has had labs and imaging which I independently reviewed. The patient did have a chest x-ray that did not show any evidence of pneumonia. Patient also had a ultrasound of the gallbladder. This study demonstrated the patient had a distended gallbladder with sludge as well as a gallstone that appeared to be in the neck of the gallbladder. There is no pericholecystic fluid or gallbladder wall thickening. There is no dilatation of the common bile duct. Labs include a CBC her white blood cell count was elevated at 17.1. Hemoglobin and hematocrit were within normal range. Platelet count was 4 68,000. Chemistry profile showed sodium and potassium are normal. The patient's BUN and creatinine were also normal. LFTs were normal including the bilirubin, AST, ALT, and alkaline phosphatase, all not elevated. A troponin was checked and was nonelevated. Lipase was nonelevated. A test was negative. A urinalysis was not indicative of infection. A COVID test was performed and was noted to be negative. An EKG was performed that showed normal sinus rhythm without changes indicative of acute ischemia. At the time of my interview the patient is resting comfortably in bed and she was in no distress. Concerning past surgical history the patient says that she has only had lithotripsy for history of kidney stones and again specifically denies any abdominal surgeries Past medical history is significant for nephrolithiasis, hypertension, and leukocytosis. Concerning the patient's leukocytosis she notes that she has had a persistent leukocytosis for approximately 3 years and has seen a hematology/engineering specialist technician in [place]. Patient says that she has had a bone marrow biopsy in the past and to the best of her knowledge there is no significant pathology and she has not required any specific treatment for this problem. 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 Concerning family history she says that her grandfather suffered from coronary artery disease diagnosed in his 40s. Principal Diagnosis s/p laparoscopic cholecystectomy cholelithiasis Discharge Exam awake/alert Respiratory normal respiratory effort Gastrointestinal (Abdomen) Inspection/Auscultation: + abdominal surgical incision (c/d/i with skin glue) Percussion/Palpation: + abdomen tender (mild expected kevin incisional discomfort) and abdomen soft Discharge Data Allergies Allergy/AdvReac Type Severity Reaction Status Date / Time No Known Allergies Allergy Verified 02/08/23 06:57 Consultations 02/08/23 01:24 ED Decision to Admit Stat Procedures Performed Operation Date: 02/08/23 09:10 Actual Procedures p Laparoscopic Cholecystectomy (Not Applicable) - Gunnar Weiner, Ordered Studies 02/07/23 20:16 US abdomen complete Stat Hospital Course (1) S/P laparoscopic cholecystectomy: This is a 32y F who presented to the [facility] ED on 02/07/23 with RUQ abdominal pain. Workup in the ER with a RUQ US revealed distended gallbladder with + cholelithiasis and sludge in the gallbladder neck. WBC 17. She was admitted overnight and kept NPO with IVF and started on IV abx and booked for the OR. On the AM of 02/08/23 she went to the OR with Dr. Weiner for a laparoscopic cholecystectomy. The patient tolerated the procedure well, see op note for full details. She recovered in the PACU and was transferred back to the med/surg floor in stable condition. Her diet was advanced as tolerated without issues. Her pain was well controlled on po pain meds. She was ambulating without issues. She was deemed stable for discharge to home on 02/08 with instructions to follow up in clinic within 2 weeks (2) Cholelithiasis: Total Time Total Time Spent Total Time Spent (In Minutes): 10 Discharge Plan Discharge Items Patient Disposition: Home - Self-Care Reason For Visit: KANE Discharge Diagnosis: laparoscopic cholecystectomy Condition on Discharge: Good Activity: Per Instructions section Lifting: No more than 10 pounds Bathing Comment: may shower starting 02/09/23; no soaking in tubs/pools x 2 weeks Exercise/Sports: Wait until after follow-up appointment Driving/Machine Use: no driving while taking narcotics for pain Non-emergency contact: Surgeon Call non-emergency contact if: you have any medication questions, your symptoms worsen, your pain is not controlled, your pain is worsening, your pain is unusual for you, your pain is concerning for you, you have a fever, your temperature is above 101.5, your wound has increased redness and your wound pain has increased Follow-up/Referrals: Gunnar Weiner, DO [Surgeon] - 02/22/23 11:30 am (Please call to schedule follow up in clinic within 2 weeks) Yanni Colvin PA-C [Primary Care Provider] - Diet: Regular Addtl Attending Provider Instructions: Pending Studies at Discharge: Yes Studies:: surgical pathology Stand-Alone Forms: [facility], Pain - Opioid Pain Management, Smoking Cessation Medications and DC Order Prescriptions: New oxycodone-acetaminophen [Percocet] 5-325 mg tablet 1 - 2 tab PO .q4-6h PRN (Reason: pain, for initial therapy, max 6 tabs per day) Qty: 15 0RF Continued atorvastatin 10 mg tablet 10 mg PO DAILY amlodipine 10 mg tablet 10 mg PO DAILY hydrochlorothiazide 12.5 mg capsule 12.5 mg PO DAILY norgestimate-ethinyl estradiol [Idd-Py-Ztrhgn] 0.18/0.215/0.25 mg-25 mcg tablet 1 tab PO DAILY losartan 50 mg tablet 50 mg PO DAILY Discharge Orders: Discharge Order (Routine); Ordered 02/08/23 Ordered By: Lani Oliveira/Other Patient Handouts: Cholecystectomy Dc Admission Data Admit Date/Time: 02/08/23 01:59 Attending Provider: Gunnar Weiner Admit Provider: Gunnar Weiner Primary Care Provider: Yanni Colvin Other Providers: Gunnar Weiner Other Interventions: Discharge Summary Assessment (RN) Last Done: 02/08/23 13:58 Coding Level of Care Code 63132 IN/OBS DISCH 30 MIN/LESS Diagnoses S/P laparoscopic cholecystectomy Z90.49 Cholelithiasis K80.20
== END 2023-02-08 15:36 | disposition home or self-care (01) ==
LOC: ED 20:01 → INTOOBSV 02-08 01:59 → 3W 02-08 01:59

== ENCOUNTER 2024-03-20 20:53 | Observation (INO) ==
[2024-03-20 21:34] LABS: POC Urine Bilirubin 3+ (Negative); POC Urine Blood 250 (Negative); POC Urine Glucose Normal (Normal); POC Urine Ketones Negative (Negative); POC Urine Leukocytes Trace (Negative); POC Urine Protein 1+ (Negative); POC Urine Urobilinogen 4 (Normal); POC Urine pH 5 (4.5-7.5)
[2024-03-20 21:55] LABS: Albumin Globulin Ratio 1.1 (0.9-2); Albumin Level 4.1 gm/dl (3.4-5.0); BUN Creatinine Ratio 15.5 (10-20); Bilirubin,Total 0.5 mg/dl (0.2-1.0); Creatinine Clr Calc Pharmacy 52.1 ml/min; Est GFR (African American) 39.7 ml/min; Est GFR (Non-African American) 34.2 ml/min; Globulin 3.9 gm/dl (2.5-4.0); Potassium 3.7 mmol/L (3.5-5.1)
[2024-03-20 22:10] LABS: Appearance Urine Clear (Clear); Bilirubin Urine 1+ (Negative); Blood Urine 3+ (Negative); Color Urine Orange; Glucose Urine UA Negative (Negative); Ketones Urine Negative (Negative); Leukocyte Esterase Urine 1+ (Negative); Nitrite Urine Positive (Negative); Protein Urine 1+ (Negative); RBC Urine Automated >20 /hpf (0-2); Specific Gravity Urine 1.012 (1.000-1.030); Urobilinogen Urine Negative (Negative)
[2024-03-20 22:31] LABS: Bacteria Urine Automated 1+ (None Seen)
--- NOTE | 2024-03-20 22:35 | Emergency Department Note ---
Impression & Plan ZOEY (acute kidney injury), Difficulty urinating, Lower abdominal pain, UTI (urinary tract infection), Ureterolithiasis ED Provider Note ED Provider Note NAME: NGOC HARRINGTON AGE:33 SEX: Female : 1990 ARRIVES VIA: Private vehicle INFORMANT: Patient ED PROVIDER(s): Lolly Samano DO CHIEF COMPLAINT: Difficulty urinating, lower abdominal pain, accidental stent removal HPI: This is a 33-year-old female who presents emergency department due to concern for difficulty urinating, lower abdominal pain, and accidental stent removal at home earlier today. Patient states she woke this morning and was not careful after urinating and dislodged ureteral stent. She states she removed it and it appeared intact. She states she felt well and had no pain and was able to urinate and went about her day. She states throughout the course of the day she noticed she was only urinating very little however was trying to stay hydrated by drinking plenty of water. She states this evening she began to notice increasing lower abdominal pain and right flank pain. Patient states stent placed by urologist in [place] last Wednesday after she was found to have two 10 mm stones. She states she was due to have the stent removed on Wednesday with urology. She denies fevers or chills, nausea or vomiting. She states she did finish a 5-day course of cipro following stent placement. Patient states she has had multiple kidney stones previously. She has previously had lithotripsy and ureteral stents. PAST MEDICAL HISTORY:See Below PAST SURGICAL HISTORY:See Below FAMILY HISTORY:See Below SOCIAL HISTORY:See Below HOME MEDICATIONS:See Below ALLERGIES:See Below VITALS:See Below PHYSICAL EXAMINATION: GENERAL: alert, well appearing, well nourished, no distress, non-toxic EYE EXAM: normal conjunctiva, PERRL and EOM's grossly intact OROPHARYNX: no exudate, no erythema, lips, buccal mucosa, and tongue normal and mucous membranes are moist NECK: supple, no nuchal rigidity, no adenopathy, non-tender LUNGS: Clear to auscultation. Normal chest wall mechanics, no w/r/r HEART: no murmurs, S1 normal and S2 normal ABDOMEN: abdomen soft, tenderness with palpation to the suprapubic area and lower abdomen, mild firmness, normo-active bowel sounds, no masses, no rebound or guarding. SKIN: no rashes, petechiae, orbruising UPPER EXTREMITIES: upper extremities are grossly normal. FROM, nml pulses b/l. LOWER EXTREMITIES: No pitting edema. FROM, nml pulses b/l. NEURO EXAM: Normal sensorium, cranial nerves II-XII grossly intact, normal speech, no facial droop,nogross weakness of arms, no gross weakness of legs. Gross sensation intact. No ataxia. Vital Signs: reviewed and remarkable Differential Diagnosis: Ureteral spasm, UTI, pyelonephritis, urinary retention, ureterolithiasis, ureteral perforation, bladder perforation, bladder stone, constipation, as well as others were considered MEDICAL DECISION MAKING: This is a 33-year-old female with a long history of recurrent kidney stones presents emergency department after she accidentally dislodged and then removed her ureteral stent that was placed last Wednesday. Patient with significant pain on arrival and was noted to be tachycardic however other vital signs stable. Labs drawn and sent, IV established, initial KUB performed. We did attempt to BladderScan the patient as she had a firm and slightly distended suprapubic area and complained of not being able to urinate. Shea catheter placed with return of urine however not a large volume amount. Patient given IV Tylenol, IV Toradol, and eventually IV morphine additionally to help control her pain. She was given IV fluids. UA collected and sent and was suggestive of infection. Additional Rocephin IV was added. Patient noted to have a leukocytosis as well as ZOEY compared to prior. Given concern for recent intervention, concurrent infection, as well as concern for persistent stones, patient sent for CT imaging. CT revealed several stones, however much smaller compared to her original sizes. We did discuss all results at bedside. After discussion of results, I feel patient would benefit from additional inpatient evaluation and monitoring. Case discussed with the hospitalist team additionally. Consultation(s): 0247: Discussed with Dr. Ronquillo, [place] hospitalist team, for additional evaluation and mgmt. ER Treatment Provided: See below Diagnostics Interpreted By Me: -Cardiac Monitoring: An order was placed for continuous cardiac monitoring. The monitor shows a rate of 72 with normal sinus rhythm. -Laboratory studies: As stated above and show below. -Imaging studies: ct a/p - ureterolithiasis noted Triage Nursing Note Reviewed Prior/Outside Records Reviewed Past Med/Surg History Problem List (Updated 03/21/24 @ 03:36 by Lolly Samano DO) Ureterolithiasis (Acute) UTI (urinary tract infection) (Acute) ZOEY (acute kidney injury) (Acute) Lower abdominal pain (Acute) Difficulty urinating (Acute) S/P laparoscopic cholecystectomy Hypertensive urgency (Acute) No significant past surgical history COVID-19 virus infection (Acute) RUQ abdominal pain (Acute) Cholelithiasis Hypertension (Acute) COVID (Acute) Medical History History of kidney stones Hematuria Vomiting Leukocytosis Obesity Surgical History Hx laparoscopic cholecystectomy (02/08/23) Laparoscopic Cholecystectomy (Not Applicable) - Gunnar Weiner DO History of cystoscopy removal right kidney stone Social History Smoking Status: Never smoker Tobacco Type: Cigarettes Second Hand Exposure: No; Do You Dip or Chew Tobacco: No; Hx Alcohol Use: Yes Hx Substance Use: No Preferred Language: Romanian Communication Ability: Effective Sound Effects Manager Required: No Beliefs That Will Affect Care: None marital status: Current Living Situation: Spouse current occupational status: employed Feels Safe at Home: Yes Assistive Devices: None Allergies Allergies Allergy/AdvReac Type Severity Reaction Status Date / Time No Known Allergies Allergy Verified 05/10/23 15:15 Home Meds Home Medications Medication Instructions Recorded Confirmed amlodipine 10 mg tablet 10 mg PO DAILY 06/05/21 05/10/23 atorvastatin 10 mg tablet 10 mg PO DAILY 06/05/21 05/10/23 hydrochlorothiazide 12.5 mg capsule 12.5 mg PO DAILY 06/05/21 05/10/23 losartan 50 mg tablet 50 mg PO DAILY 06/05/21 05/10/23 norgestimate 0.18 mg/0.215 mg/0.25 1 tab PO DAILY 06/05/21 05/10/23 mg-ethinyl estradiol 25 mcg tablet ([id number]) Results & Data (ED) Vital Signs Vital Signs - 24 hr 03/20/24 21:00 03/20/24 22:01 03/20/24 22:02 Temperature 36.3 C L Temperature Source Temporal Artery Scan Pulse Rate 110 H 103 H Pulse Rate [Apical] 98 H Pulse Rhythm [Apical] Respiratory Rate 17 20 Respiratory Effort / Characteristics Respiratory Depth Respiratory Pattern Blood Pressure 166/91 H Blood Pressure [Left Arm] Blood Pressure [Right Arm] 163/112 H Blood Pressure Mean 116 Blood Pressure Mean [Left Arm] Blood Pressure Mean [Right Arm] 129 Pulse Oximetry 95 96 Oxygen Delivery Method Room Air Room Air Sepsis Recent Fever Within 48 Hours No Sepsis New/Unexplained Change in Mental Status No Sepsis Action Taken by Nursing No Action Required 03/21/24 00:15 03/21/24 01:59 03/21/24 02:00 Temperature Temperature Source Pulse Rate 78 Pulse Rate [Apical] 86 70 Pulse Rhythm [Apical] Regular Regular Respiratory Rate 16 19 Respiratory Effort / Characteristics Non-Labored Spontaneous Non-Labored Spontaneous Respiratory Depth Normal Normal Respiratory Pattern Regular Blood Pressure Blood Pressure [Left Arm] 164/101 H 145/84 H Blood Pressure [Right Arm] Blood Pressure Mean Blood Pressure Mean [Left Arm] 122 104 Blood Pressure Mean [Right Arm] Pulse Oximetry 95 93 Oxygen Delivery Method Room Air Room Air Sepsis Recent Fever Within 48 Hours Sepsis New/Unexplained Change in Mental Status Sepsis Action Taken by Nursing Laboratory Data 03/20/24 21:16 03/20/24 21:16 Lab Results 03/20/24 03/20/24 Range/Units 21:16 23:25 WBC 15.56 H (4.8-10.8) K/ul RBC 5.53 H (4.20-5.40) M/uL Hgb 14.4 (12.0-16.0) g/dl Hct 44.0 (37.0-47.0) % MCV 79.6 L (80.0-100.0) fL MCH 26.0 (25.0-34.0) pg MCHC 32.7 (32.0-36.0) g/dL RDW Std Deviation 39.6 (36.4-46.3) fL RDW Coeff of Marnie 13.7 (11.5-14.5) % Plt Count 448 H (130-400) K/uL MPV 8.6 L (9.4-12.4) fL Immature Gran % (Auto) 0.4 % Neut % (Auto) 70.8 % Lymph % (Auto) 17.5 % Routt % (Auto) 9.3 % Eos % (Auto) 1.5 % Baso % (Auto) 0.5 % Neut # (Auto) 11.02 H (1.40-6.50) K/uL Lymph # (Auto) 2.72 (1.20-3.40) K/uL Routt # (Auto) 1.44 H (0.11-0.59) K/uL Eos # (Auto) 0.23 (0.00-0.50) K/uL Baso # (Auto) 0.08 (0.00-0.20) K/uL Immature Gran # (Auto) 0.07 (0.01-0.20) K/uL Sodium 137 (136-145) mmol/L Potassium 3.7 (3.5-5.1) mmol/L Chloride 105 (98-107) mmol/L Carbon Dioxide 21 (21-32) mmol/L Anion Gap 11 (3-11) BUN 29 H (6-23) mg/dl Creatinine 1.87 H (0.6-1.2) mg/dl Est Cr Clr Drug Dosing 52.1 ml/min Est GFR ( Amer) 39.7 ml/min Est GFR (Non-Af Amer) 34.2 ml/min BUN/Creatinine Ratio 15.5 (10-20) Glucose 113 H (70-99(Fasting)) mg/dl Calcium 10.0 (8.6-10.3) mg/dl Total Bilirubin 0.5 (0.2-1.0) mg/dl AST 28 (13-39) U/L ALT 20 (7-52) U/L Alkaline Phosphatase 92 (34-104) U/L Total Protein 8.0 (6.0-8.3) gm/dl Albumin 4.1 (3.4-5.0) gm/dl Globulin 3.9 (2.5-4.0) gm/dl Albumin/Globulin Ratio 1.1 (0.9-2) Urine Color Stanley Urine Appearance Clear (Clear) Urine pH 5.0 (4.5-7.5) POC Urine pH 5 (4.5-7.5) Ur Specific [place] 1.012 (1.000-1.030) Urine Protein 1+ H (Negative) POC Urine Protein 1+ H (Negative) Urine Glucose (UA) Negative (Negative) POC Ur Glucose (UA) Normal (Normal) Urine Ketones Negative (Negative) POC Urine Ketones Negative (Negative) Urine Blood 3+ H (Negative) POC Urine Blood 250 H (Negative) Urine Nitrite Positive A (Negative) Urine Bilirubin 1+ H (Negative) POC Urine Bilirubin 3+ H (Negative) Urine Urobilinogen Negative (Negative) POC Urine Urobilinogen 4 H (Normal) Ur Leukocyte Esterase 1+ H (Negative) POC U Leukocyte Esteras Trace H (Negative) Urine WBC (Auto) 6-10 H (0-5) /hpf Urine RBC (Auto) >20 H (0-2) /hpf U Hyaline Cast (Auto) 3-5 H (0-2) /lpf U Epithel Cells (Auto) 6-10 H (0-2) /hpf Urine Bacteria (Auto) 1+ H (None Seen) POC Ur Test NEG (NEG) Administered Medications Sodium Chloride (Nss) 1,000 mls @ 250 mls/hr IV .Q4H BRENNA Stop: 04/20/24 00:29 Last Admin: 03/21/24 01:28 Dose: 250 mls/hr Documented By: ADEN Discontinued Medications Ceftriaxone Sodium (Rocephin) 2,000 mg in 50 mls @ 100 mls/hr IV NOW STA Stop: 03/20/24 23:18 Last Infusion: 03/20/24 23:35 Dose: Infused Documented By: Admin: 03/20/24 23:05 Dose: 100 mls/hr Documented By: LUZ Sodium Chloride (Nss) 1,000 mls @ 999 mls/hr IV .Q1H1M ONE Stop: 03/20/24 23:49 Last Infusion: 03/21/24 01:28 Dose: Infused Documented By: Admin: 03/20/24 23:05 Dose: 999 mls/hr Documented By: LUZ Acetaminophen (Ofirmev) 1,000 mg in 100 mls @ 400 mls/hr IV NOW STA Stop: 03/20/24 23:19 Last Infusion: 03/21/24 00:08 Dose: Infused Documented By: Admin: 03/20/24 23:44 Dose: 400 mls/hr Documented By: ADEN Morphine Sulfate (Morphine Sulfate 4 Mg/Ml 1 Ml Carp\Vial) 4 mg IV NOW STA Stop: 03/21/24 00:23 Last Admin: 03/21/24 00:30 Dose: 4 mg Documented By: ADEN Ondansetron HCl (Ondansetron Inj 2 Mg/Ml 2 Ml Vial) 4 mg IV NOW STA Stop: 03/20/24 23:06 Last Admin: 03/20/24 23:44 Dose: 4 mg Documented By: EMB Imaging Data Radiologist's Impression: Abdomen/Pelvis CT 03/20/24 22:49 Exam(s): CT ABDOMEN + PELVIS Without Contrast EXAM: CT Abdomen and Pelvis Without Intravenous Contrast CLINICAL HISTORY: hx stones, stent removed, UTI. TECHNIQUE: Axial computed tomography images of the abdomen and pelvis without intravenous contrast. CTDI is 28.14 mGy and DLP is 1437.03 mGy-cm. Automated exposure control was utilized for the study. A dose lowering technique was utilized adhering to the principles of ALARA. COMPARISON: No relevant prior studies available. FINDINGS: Lung bases: Unremarkable. No mass. No consolidation. ABDOMEN: Liver: Unremarkable. Gallbladder and bile ducts: Cholecystectomy. No ductal dilation. Pancreas: Unremarkable. No ductal dilation. Spleen: Unremarkable. No splenomegaly. Adrenals: Unremarkable. No mass. Kidneys and ureters: Multiple distal right ureteral stones noted, measuring up to 2 mm in diameter extending to the right UVJ. There is moderate proximal right ureterectasis with moderately severe right hydronephrosis noted. Periureteral fat stranding identified. Subcentimeter nephrolithiasis noted involving the mid to inferior calyces on the right. Cortical atrophy suspected on the right suggesting a component of chronicity. No left-sided hydronephrosis or nephrolithiasis. Stomach and bowel: The stomach is decompressed with minimal fluid and gas. No gastric mucosal thickening. No evidence for bowel obstruction. Evaluation of the bowel mucosa is slightly limited without contrast; however, no definite focal asymmetry suggested. PELVIS: Appendix: No findings to suggest acute appendicitis. Bladder: A Shea catheter is noted in the decompressed bladder. No bladder wall thickening or additional bladder stones noted. Reproductive: Unremarkable as visualized. ABDOMEN and PELVIS: Intraperitoneal space: Unremarkable. No free air. No significant fluid collection. Bones/joints: No acute fracture. No dislocation. Soft tissues: Unremarkable. Vasculature: Unremarkable. No abdominal aortic aneurysm. Lymph nodes: Unremarkable. No enlarged lymph nodes. IMPRESSION: Multiple distal right ureteral stones noted, measuring up to 2 mm in diameter extending to the right UVJ. There is moderate proximal right ureterectasis with moderately severe right hydronephrosis noted. Periureteral fat stranding identified. Electronically signed by: Gunnar France MD 03/21/24 02:24 AM Discharge Plan Visit Data Chief Complaint: Unable to Void Stated Complaint: UTARAL STINT, VAG PAIN, UNABLE TO FULLY VOID ED Provider: Lolly Samano Discharge Problem: ZOEY (acute kidney injury), Difficulty urinating, Lower abdominal pain, UTI (urinary tract infection), Ureterolithiasis Forms Stand Alone Forms: [facility] [employer] Prescriptions Prescriptions: No Action atorvastatin 10 mg tablet 10 mg PO DAILY amlodipine 10 mg tablet 10 mg PO DAILY hydrochlorothiazide 12.5 mg capsule 12.5 mg PO DAILY norgestimate-ethinyl estradiol [[id number]] 0.18/0.215/0.25 mg-25 mcg tablet 1 tab PO DAILY losartan 50 mg tablet 50 mg PO DAILY Referrals Referrals: Yanni Colvin PA-C [Primary Care Provider] -
[2024-03-20] MEDS: cefTRIAXone SODIUM 2,000 MG/50 ML BAG IV STA (23:05)
[2024-03-20] MEDS: SODIUM CHLORIDE 0.9% 1,000 ML IV ONE (23:05)
[2024-03-20 23:18] LABS: Basophils # (auto) 0.08 K/uL (0.00-0.20); Basophils % (auto) 0.5 %; Eosinophils # (auto) 0.23 K/uL (0.00-0.50); Eosinophils % (auto) 1.5 %; Hemoglobin 14.4 g/dl (12.0-16.0); Immature Granulocytes # (auto) 0.07 K/uL (0.01-0.20); Immature Granulocytes % (auto) 0.4 %; Lymphocytes # (auto) 2.72 K/uL (1.20-3.40); Lymphocytes % (auto) 17.5 %; Mean Corpuscular Hgb Conc 32.7 g/dL (32.0-36.0); Mean Corpuscular Volume 79.6 fL (80.0-100.0); Mean Platelet Volume 8.6 fL (9.4-12.4); Monocytes # (auto) 1.44 K/uL (0.11-0.59); Monocytes % (auto) 9.3 %; Neutrophils # (auto) 11.02 K/uL (1.40-6.50); Neutrophils % (auto) 70.8 %; Platelet Count 448 K/uL (130-400); RDW Coefficient of Variation 13.7 % (11.5-14.5); RDW Standard Deviation 39.6 fL (36.4-46.3); Red Blood Count 5.53 M/uL (4.20-5.40); White Blood Count 15.56 K/ul (4.8-10.8)
[2024-03-20] MEDS: ACETAMINOPHEN 1,000 MG/100 ML VIAL IV STA (23:44)
[2024-03-20] MEDS: ONDANSETRON INJ 2 MG/ML 2 ML VIAL IV STA (23:44)
[2024-03-21] MEDS: MoRPHine SULFATE 4 MG/ML 1 ML CARP\\VIAL IV STA (00:30)
[2024-03-21] MEDS: SODIUM CHLORIDE 0.9% 1,000 ML IV SCH ×2 (01:28→05:50)
--- NOTE | 2024-03-21 02:25 | CT Scan Report ---
Exam(s): CT ABDOMEN + PELVIS Without Contrast EXAM: CT Abdomen and Pelvis Without Intravenous Contrast CLINICAL HISTORY: hx stones, stent removed, UTI. TECHNIQUE: Axial computed tomography images of the abdomen and pelvis without intravenous contrast. CTDI is 28.14 mGy and DLP is 1437.03 mGy-cm. Automated exposure control was utilized for the study. A dose lowering technique was utilized adhering to the principles of ALARA. COMPARISON: No relevant prior studies available. FINDINGS: Lung bases: Unremarkable. No mass. No consolidation. ABDOMEN: Liver: Unremarkable. Gallbladder and bile ducts: Cholecystectomy. No ductal dilation. Pancreas: Unremarkable. No ductal dilation. Spleen: Unremarkable. No splenomegaly. Adrenals: Unremarkable. No mass. Kidneys and ureters: Multiple distal right ureteral stones noted, measuring up to 2 mm in diameter extending to the right UVJ. There is moderate proximal right ureterectasis with moderately severe right hydronephrosis noted. Periureteral fat stranding identified. Subcentimeter nephrolithiasis noted involving the mid to inferior calyces on the right. Cortical atrophy suspected on the right suggesting a component of chronicity. No left-sided hydronephrosis or nephrolithiasis. Stomach and bowel: The stomach is decompressed with minimal fluid and gas. No gastric mucosal thickening. No evidence for bowel obstruction. Evaluation of the bowel mucosa is slightly limited without contrast; however, no definite focal asymmetry suggested. PELVIS: Appendix: No findings to suggest acute appendicitis. Bladder: A Shea catheter is noted in the decompressed bladder. No bladder wall thickening or additional bladder stones noted. Reproductive: Unremarkable as visualized. ABDOMEN and PELVIS: Intraperitoneal space: Unremarkable. No free air. No significant fluid collection. Bones/joints: No acute fracture. No dislocation. Soft tissues: Unremarkable. Vasculature: Unremarkable. No abdominal aortic aneurysm. Lymph nodes: Unremarkable. No enlarged lymph nodes. IMPRESSION: Multiple distal right ureteral stones noted, measuring up to 2 mm in diameter extending to the right UVJ. There is moderate proximal right ureterectasis with moderately severe right hydronephrosis noted. Periureteral fat stranding identified. Electronically signed by: Gunnar France MD 03/21/24 02:24 AM
[2024-03-21] MEDS ORDERED: MoRPHine SULFATE 4 MG/ML 1 ML CARP\\VIAL IV PRN (03:25)
[2024-03-21] MEDS ORDERED: hydrALAZINE HCL 20 MG/ML VIAL IV PRN (03:27)
--- NOTE | 2024-03-21 03:30 | History & Physical Report ---
Date of Service March 21, 2024 Assessment & Plan (1) Calculus of distal right ureter: (2) UTI (urinary tract infection): (3) ZOEY (acute kidney injury): (4) Ureterolithiasis: (5) Hypertension: Plan Multiple distal right ureteral stones/moderately severe right hydronephrosis- NPO Follow urine culture and sensitivity Ceftriaxone 2 g IV daily Acetaminophen 1 g IV every 8 hours as needed for mild pain or fever Morphine sulfate 2 mg IV every 3 hours as needed for moderate pain Morphine sulfate 4 mg IV every 3 hours as needed for severe pain Pantoprazole 40 mg IV daily Zofran 4 mg IV every 6 hours as needed Status post 1 L normal saline in the ED Presently receiving 1 Liter normal saline 1 L at 250 mL/h Then will receive 1 additional liter normal saline at 80 mL/h x 1 additional liter Consult urology Acute kidney injury- Creatinine 1.87 on admission, with base 0.88 IV fluids as noted above Holding HCTZ and losartan Repeat laboratories in a.m. Hypertension- Hold amlodipine, HCTZ and losartan Hydralazine 10 mg IV every 4 hours as needed for systolic blood pressure above 160 Hyperlipidemia- Holding atorvastatin History of Present Illness Chief Complaint: The patient presents to the emergency department with report of having a right ureteral stent accidentally dislodged this morning when she was wiping after urinating, and initially did not have discomfort, but as the day progressed developed worsening right flank and right sided pelvic pain Primary Care Provider: Yanni Colvin The patient is a 33-year-old female with a history of multiple kidney stones, hypertensive urgency, status post laparoscopic cholecystectomy on 02/08/2023, hypertension, hyperlipidemia and morbid obesity. She was most recently seen at [facility] 6 days ago, when she had lithotripsy for 2 10 mm kidney stones on the right side, with ureteral stent placement, and instructions to take Cipro 500 mg twice a day for 5 days, and then remove the stent via the exposed string in 2 more days from today. This morning while urinating, and then wiping afterwards, she accidentally dislodged the stent, and pulled out her remaining leg. She initially done well, but then as the day progressed developed severe right flank pain radiating to right groin, causing her to present to the ED this evening. Allergies Allergy/AdvReac Type Severity Reaction Status Date / Time No Known Allergies Allergy Verified 05/10/23 15:15 Home Medications Medication Instructions Recorded Confirmed Type amlodipine 10 mg tablet 10 mg PO DAILY 06/05/21 05/10/23 History atorvastatin 10 mg tablet 10 mg PO DAILY 06/05/21 05/10/23 History hydrochlorothiazide 12.5 mg capsule 12.5 mg PO DAILY 06/05/21 05/10/23 History losartan 50 mg tablet 50 mg PO DAILY 06/05/21 05/10/23 History norgestimate 0.18 mg/0.215 mg/0.25 1 tab PO DAILY 06/05/21 05/10/23 History mg-ethinyl estradiol 25 mcg tablet ([id number]) Past Med/Surg History Problem List (Updated 03/21/24 @ 03:40 by Micheal Ronquillo MD) Calculus of distal right ureter Ureterolithiasis (Acute) UTI (urinary tract infection) (Acute) ZOEY (acute kidney injury) (Acute) Lower abdominal pain (Acute) Difficulty urinating (Acute) S/P laparoscopic cholecystectomy Hypertensive urgency (Acute) No significant past surgical history COVID-19 virus infection (Acute) RUQ abdominal pain (Acute) Cholelithiasis Hypertension (Acute) COVID (Acute) Medical History (Updated 03/21/24 @ 03:40 by Micheal Ronquillo MD) Hyperlipidemia History of kidney stones Hematuria Vomiting Leukocytosis Obesity Surgical History (Updated 02/10/23 @ 11:12 by Lani Avila PA-C) Hx laparoscopic cholecystectomy (02/08/23) Laparoscopic Cholecystectomy (Not Applicable) - Gunnar Weiner, History of cystoscopy removal right kidney stone Social History Smoking Status: Never smoker Tobacco Type: Cigarettes Second Hand Exposure: No; Do You Dip or Chew Tobacco: No; Hx Alcohol Use: Yes Hx Substance Use: No Preferred Language: Chinese Communication Ability: Effective Research Soil Scientist Required: No Beliefs That Will Affect Care: None marital status: Current Living Situation: Spouse current occupational status: employed Feels Safe at Home: Yes Assistive Devices: None Review of Systems Review of Systems: The patient denies chest pain, palpitations, shortness of breath, dyspnea on exertion, cough, lower extremity swelling, sore throat, fevers, chills, sweats, weight change, fatigue, nausea, vomiting, diarrhea , constipation, blood in stool, lightheadedness, dizziness, headache, memory loss, loss of consciousness, rash, imbalance, focal or generalized weakness, numbness or tingling in arms or legs, generalized arthralgias or myalgias, neck pain, or night sweats. The review of systems is otherwise negative other than for that already noted above, and at least 10 systems have been reviewed. Physical Exam Physical Exam: The patient is awake, alert and oriented 3, well developed and well nourished, normocephalic and atraumatic, lying in bed and in no acute distress. HEENT--PERRL, EOMI, mucous membranes and oropharynx normal Neck--supple. No JVD. No bruits. Thyroid normal, trachea midline, no adenopathy. Heart--normal S1 and S2. No murmurs, rubs or gallops. Lungs--clear bilaterally, no respiratory distress, no accessory muscle use. Abdomen--normal bowel sounds and soft. Nontender. Nondistended. Morbidly obese Extremities--No edema. Dermatologic--normal skin turgor, normal color, no abnormal lymph nodes, no rash. Neurologic--cranial nerves II through XII grossly intact. Rheumatologic--normal range of motion. Psychiatric--normal affect. Results & Data Results & Data Vital Signs (Past 12 Hours) Vital Signs Temp Pulse Pulse Resp BP BP BP 03/21/24 02:00 70 19 145/84 H 03/21/24 01:59 78 03/21/24 00:15 86 16 164/101 H 03/20/24 22:02 103 H 03/20/24 22:01 98 H 20 163/112 H 03/20/24 21:00 36.3 C L 110 H 17 166/91 H Pulse Ox O2 Del Method 03/21/24 02:00 93 Room Air 03/21/24 01:59 03/21/24 00:15 95 Room Air 03/20/24 22:02 03/20/24 22:01 96 Room Air 03/20/24 21:00 95 Room Air Laboratory Results Laboratory Results WBC 15.56 K/ul (4.8-10.8) H 03/20/24 21:16 RBC 5.53 M/uL (4.20-5.40) H 03/20/24 21:16 Hgb 14.4 g/dl (12.0-16.0) 03/20/24 21:16 Hct 44.0 % (37.0-47.0) 03/20/24 21:16 MCV 79.6 fL (80.0-100.0) L 03/20/24 21:16 MCH 26.0 pg (25.0-34.0) 03/20/24 21:16 MCHC 32.7 g/dL (32.0-36.0) 03/20/24 21:16 RDW Std Deviation 39.6 fL (36.4-46.3) 03/20/24 21:16 RDW Coeff of Marnie 13.7 % (11.5-14.5) 03/20/24 21:16 Plt Count 448 K/uL (130-400) H 03/20/24 21:16 MPV 8.6 fL (9.4-12.4) L 03/20/24 21:16 Immature Gran % (Auto) 0.4 % 03/20/24 21:16 Neut % (Auto) 70.8 % 03/20/24 21:16 Lymph % (Auto) 17.5 % 03/20/24 21:16 Stearns % (Auto) 9.3 % 03/20/24 21:16 Eos % (Auto) 1.5 % 03/20/24 21:16 Baso % (Auto) 0.5 % 03/20/24 21:16 Neut # (Auto) 11.02 K/uL (1.40-6.50) H 03/20/24 21:16 Lymph # (Auto) 2.72 K/uL (1.20-3.40) 03/20/24 21:16 Stearns # (Auto) 1.44 K/uL (0.11-0.59) H 03/20/24 21:16 Eos # (Auto) 0.23 K/uL (0.00-0.50) 03/20/24 21:16 Baso # (Auto) 0.08 K/uL (0.00-0.20) 03/20/24 21:16 Immature Gran # (Auto) 0.07 K/uL (0.01-0.20) 03/20/24 21:16 Sodium 137 mmol/L (136-145) 03/20/24 21:16 Potassium 3.7 mmol/L (3.5-5.1) 03/20/24 21:16 Chloride 105 mmol/L (98-107) 03/20/24 21:16 Carbon Dioxide 21 mmol/L (21-32) 03/20/24 21:16 Anion Gap 11 (3-11) 03/20/24 21:16 BUN 29 mg/dl (6-23) H 03/20/24 21:16 Creatinine 1.87 mg/dl (0.6-1.2) H 03/20/24 21:16 Est Cr Clr Drug Dosing 52.1 ml/min 03/20/24 21:16 Est GFR ( Amer) 39.7 ml/min 03/20/24 21:16 Est GFR (Non-Af Amer) 34.2 ml/min 03/20/24 21:16 BUN/Creatinine Ratio 15.5 (10-20) 03/20/24 21:16 Glucose 113 mg/dl (70-99(Fasting)) H 03/20/24 21:16 Calcium 10.0 mg/dl (8.6-10.3) 03/20/24 21:16 Total Bilirubin 0.5 mg/dl (0.2-1.0) 03/20/24 21:16 AST 28 U/L (13-39) 03/20/24 21:16 ALT 20 U/L (7-52) 03/20/24 21:16 Alkaline Phosphatase 92 U/L (34-104) 03/20/24 21:16 Total Protein 8.0 gm/dl (6.0-8.3) 03/20/24 21:16 Albumin 4.1 gm/dl (3.4-5.0) 03/20/24 21:16 Globulin 3.9 gm/dl (2.5-4.0) 03/20/24 21:16 Albumin/Globulin Ratio 1.1 (0.9-2) 03/20/24 21:16 Urine Color [place] 03/20/24 21:16 Urine Appearance Clear (Clear) 03/20/24 21:16 Urine pH 5.0 (4.5-7.5) 03/20/24 21:16 POC Urine pH 5 (4.5-7.5) 03/20/24 21:16 Ur Specific [place] 1.012 (1.000-1.030) 03/20/24 21:16 Urine Protein 1+ (Negative) H 03/20/24 21:16 POC Urine Protein 1+ (Negative) H 03/20/24 21:16 Urine Glucose (UA) Negative (Negative) 03/20/24 21:16 POC Ur Glucose (UA) Normal (Normal) 03/20/24 21:16 Urine Ketones Negative (Negative) 03/20/24 21:16 POC Urine Ketones Negative (Negative) 03/20/24 21:16 Urine Blood 3+ (Negative) H 03/20/24 21:16 POC Urine Blood 250 (Negative) H 03/20/24 21:16 Urine Nitrite Positive (Negative) A 03/20/24 21:16 Urine Bilirubin 1+ (Negative) H 03/20/24 21:16 POC Urine Bilirubin 3+ (Negative) H 03/20/24 21:16 Urine Urobilinogen Negative (Negative) 03/20/24 21:16 POC Urine Urobilinogen 4 (Normal) H 03/20/24 21:16 Ur Leukocyte Esterase 1+ (Negative) H 03/20/24 21:16 POC U Leukocyte Esteras Trace (Negative) H 03/20/24 21:16 Urine WBC (Auto) 6-10 /hpf (0-5) H 03/20/24 21:16 Urine RBC (Auto) >20 /hpf (0-2) H 03/20/24 21:16 U Hyaline Cast (Auto) 3-5 /lpf (0-2) H 03/20/24 21:16 U Epithel Cells (Auto) 6-10 /hpf (0-2) H 03/20/24 21:16 Urine Bacteria (Auto) 1+ (None Seen) H 03/20/24 21:16 POC Ur Test NEG (NEG) 03/20/24 23:25 Impressions Abdomen/Pelvis CT 03/20/24 22:49 Exam(s): CT ABDOMEN + PELVIS Without Contrast EXAM: CT Abdomen and Pelvis Without Intravenous Contrast CLINICAL HISTORY: hx stones, stent removed, UTI. TECHNIQUE: Axial computed tomography images of the abdomen and pelvis without intravenous contrast. CTDI is 28.14 mGy and DLP is 1437.03 mGy-cm. Automated exposure control was utilized for the study. A dose lowering technique was utilized adhering to the principles of ALARA. COMPARISON: No relevant prior studies available. FINDINGS: Lung bases: Unremarkable. No mass. No consolidation. ABDOMEN: Liver: Unremarkable. Gallbladder and bile ducts: Cholecystectomy. No ductal dilation. Pancreas: Unremarkable. No ductal dilation. Spleen: Unremarkable. No splenomegaly. Adrenals: Unremarkable. No mass. Kidneys and ureters: Multiple distal right ureteral stones noted, measuring up to 2 mm in diameter extending to the right UVJ. There is moderate proximal right ureterectasis with moderately severe right hydronephrosis noted. Periureteral fat stranding identified. Subcentimeter nephrolithiasis noted involving the mid to inferior calyces on the right. Cortical atrophy suspected on the right suggesting a component of chronicity. No left-sided hydronephrosis or nephrolithiasis. Stomach and bowel: The stomach is decompressed with minimal fluid and gas. No gastric mucosal thickening. No evidence for bowel obstruction. Evaluation of the bowel mucosa is slightly limited without contrast; however, no definite focal asymmetry suggested. PELVIS: Appendix: No findings to suggest acute appendicitis. Bladder: A Shea catheter is noted in the decompressed bladder. No bladder wall thickening or additional bladder stones noted. Reproductive: Unremarkable as visualized. ABDOMEN and PELVIS: Intraperitoneal space: Unremarkable. No free air. No significant fluid collection. Bones/joints: No acute fracture. No dislocation. Soft tissues: Unremarkable. Vasculature: Unremarkable. No abdominal aortic aneurysm. Lymph nodes: Unremarkable. No enlarged lymph nodes. IMPRESSION: Multiple distal right ureteral stones noted, measuring up to 2 mm in diameter extending to the right UVJ. There is moderate proximal right ureterectasis with moderately severe right hydronephrosis noted. Periureteral fat stranding identified. Electronically signed by: Gunnar France MD 03/21/24 02:24 AM Code Status & VTE Plan Code Status Full code VTE Prophylaxis Plan VTE Prophylaxis will be ordered: Yes PG Care Time/CCT Total # of Minutes Spent Total Time Spent with Patient: Total time spent is greater than 50% in coordination of care (as documented) at patient's floor/unit and/or counseling patient: Coding Level of Care Code 93711 INT INP/OBS CARE 3/75MIN Diagnoses Calculus of distal right ureter N20.1 UTI (urinary tract infection) N39.0 ZOEY (acute kidney injury) N17.9 Ureterolithiasis N20.1 Hypertension I10 Hypertension type: unspecified (5) Hypertension Hypertension type: unspecified Qualified Code(s): I10 - Essential (primary) hypertension
[2024-03-21] MEDS ORDERED: ACETAMINOPHEN 1,000 MG/100 ML VIAL IV PRN (03:41)
--- NOTE | 2024-03-21 03:46 | Urology Consultation ---
Date of Consultation March 21, 2024 Assessment & Plan (1) Calculus of distal right ureter: The patient is being admitted on the hospitalist service. From a urologic perspective we recommend the following: The patient is noted to have small kidney stone fragments measuring approximately 2 mm and hopefully these can pass on their own The patient is noted to have an elevated creatinine as well as hydronephrosis. As the patient received previous care at an alternate hospital was on clear if the patient had significant hydronephrosis and elevated creatinine prior to her urologic procedure. Would recommend providing IV fluid for hydration Avoid nephrotoxins Follow serial labs Antibiotics in the form of Rocephin have been initiated. Antibiotic should continue and can be tailored based on future culture results Would recommend keeping the patient n.p.o. for the present time. She will be reevaluated in the morning of 03/21/2024 to determine if any further procedure or intervention is required. At the present time the patient is nontoxic-appearing, normotensive, nontachycardic, and afebrile. Additional recommendations be forthcoming based on her clinical course as unfolds History of Present Illness Reason for Consultation: Nephrolithiasis with recent urologic procedure History of Present Illness This is a 33-year-old female who presented to the emergency department at [facility] secondary to difficulty urinating. The patient notes that on 03/15/2024 she was at [facility] and [place], [place] where she underwent a cystoscopy and stent placement in the right ureter secondary to 210 mm kidney stones. The patient believes she also had what she describes as laser lithotripsy. The patient notes that she was doing well and reports that her stent was supposed to be taken out tomorrow, which was 03/22/2024, however she inadvertently pulled her stent while using the restroom on 03/20/2024. Of note, the patient notes that she was prescribed Cipro for 5 days following stent placement which she did complete. The patient ultimately presented to the emergency department [facility] she was noting some difficulty urinating, some dysuria and hematuria, as well as nausea. Patient also reports that she feels that she was only urinating small amounts. In addition, the patient reports some inte rmittent right flank pain. She denies any fevers, shakes, or chills. Since arrival to [facility] the patient has had labs and imaging which I independently reviewed. A CT scan of the abdomen pelvis showed multiple distal right ureteral stones measuring up to approximately 2 mm which extend to the ureterovesical junction. Right-sided hydronephrosis is noted. There is some periureteral fat stranding noted. Labs included CBC were white blood cell count was elevated 15.5. Hemoglobin and hematocrit were normal. Platelet count is 4-48,000. Chemistry profile showed sodium and potassium were normal. Her BUN and creatinine were 29 and 1.8. Urinalysis was positive for nitrites. There was 1+ leukocyte Estrace and 6-10 white blood cells per high- power field. There was 1+ bacteria. test was negative. Since arrival to the emergency department, the patient has had a Shea catheter placed as it was felt that the patient had a distended bladder on imaging and the fact that she was only voiding small amounts. The patient does note significant symptomatic relief with placement of this Shea catheter. At the time of my interview she was resting comfortably in bed and she was in no distress. Allergies Allergy/AdvReac Type Severity Reaction Status Date / Time No Known Allergies Allergy Verified 05/10/23 15:15 Home Medications Medication Instructions Recorded Confirmed Type amlodipine 10 mg tablet 10 mg PO DAILY 06/05/21 05/10/23 History atorvastatin 10 mg tablet 10 mg PO DAILY 06/05/21 05/10/23 History hydrochlorothiazide 12.5 mg capsule 12.5 mg PO DAILY 06/05/21 05/10/23 History losartan 50 mg tablet 50 mg PO DAILY 06/05/21 05/10/23 History norgestimate 0.18 mg/0.215 mg/0.25 1 tab PO DAILY 06/05/21 05/10/23 History mg-ethinyl estradiol 25 mcg tablet ([id number]) Patient History Medical History Hyperlipidemia History of kidney stones Hematuria Vomiting Leukocytosis Obesity Surgical History Hx laparoscopic cholecystectomy (02/08/23) Laparoscopic Cholecystectomy (Not Applicable) - Gunnar Weiner DO History of cystoscopy removal right kidney stone Social History Smoking Status: Never smoker Tobacco Type: Cigarettes Second Hand Exposure: No; Do You Dip or Chew Tobacco: No; Hx Alcohol Use: Yes Hx Substance Use: No Preferred Language: Turkmen Communication Ability: Effective Customs House 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 Required: No Beliefs That Will Affect Care: None marital status: Current Living Situation: Spouse current occupational status: employed Feels Safe at Home: Yes Assistive Devices: None Review of Systems Review of Systems: All systems reviewed & are unremarkable except as noted in HPI & below Physical Exam Constitutional: WD/WN, vitals as above Eyes: no conjunctival abnormality ENMT: Ears: no hearing impairment and no external ear abnormality Mouth: no oropharynx abnormality Neck: trachea midline Respiratory: normal respiratory effort; no respiratory distress and no labored breathing Cardiovascular: Rate/Rhythm: regular rate and regular rhythm Gastrointestinal (Abdomen): Abdomen is soft and nondistended. There is no pain with palpation Musculoskeletal: No calf tenderness, feet are warm and well-perfused Skin: no rashes Neurologic: moves all extremities Psychiatric: A+Ox3, euthymic affect Genitourinary: Slight CVA tenderness noted with percussion on the right. None on the left. Patient has a Shea catheter in place that appears patent and draining well. The urine in the collection bag is bloody. Results & Data Vital Signs (Past 12 Hours) Vital Signs Temp Pulse Pulse Resp BP BP BP 03/21/24 02:00 70 19 145/84 H 03/21/24 01:59 78 03/21/24 00:15 86 16 164/101 H 03/20/24 22:02 103 H 03/20/24 22:01 98 H 20 163/112 H 03/20/24 21:00 36.3 C L 110 H 17 166/91 H Pulse Ox O2 Del Method 03/21/24 02:00 93 Room Air 03/21/24 01:59 03/21/24 00:15 95 Room Air 03/20/24 22:02 03/20/24 22:01 96 Room Air 03/20/24 21:00 95 Room Air PG Care Time/CCT Total # of Minutes Spent Total Time Spent with Patient: Total time spent is greater than 50% in coordination of care (as documented) at patient's floor/unit and/or counseling patient: Coding Level of Care Code 61155 IN/OBS CONSULT LVL 5,80M Diagnoses Calculus of distal right ureter N20.1
[2024-03-21] MEDS ORDERED: ONDANSETRON INJ 2 MG/ML 2 ML VIAL IV PRN (04:46)
[2024-03-21] MEDS: ONDANSETRON INJ 2 MG/ML 2 ML VIAL IV PRN (04:52)
[2024-03-21] MEDS: MoRPHine SULFATE 2 MG/ML CARP IV PRN (05:12)
--- NOTE | 2024-03-21 07:19 | XRay Report ---
KUB CLINICAL HISTORY: stent position COMPARISON STUDY: Abdominal ultrasound February 07, 2023. FINDINGS: Several right renal calculi measure up to 5 mm. Several distal right ureteral calculi measu re up to 3 mm. Additional pelvic calcifications represent phleboliths. No ureteral stent is identifie d. There are cholecystectomy clips. Bowel gas pattern is normal. IMPRESSION: 1. No ureteral stone identified. 2. Several distal right ureteral calculi which measure up to 3 mm. 3. Right-sided nephrolithiasis. ACT 112: Negative or not required by law. Electronically signed by: Dayne Maki M.D. 03/21/2024 7:16 AM
--- NOTE | 2024-03-21 07:36 | Hospitalist Progress Note ---
Date of Service March 21, 2024 Assessment & Plan (1) Calculus of distal right ureter: (2) Hypertension: (3) ZOEY (acute kidney injury): (4) UTI (urinary tract infection): (5) Ureterolithiasis: Plan Multiple distal right ureteral stones/moderately severe right hydronephrosis- - Follow urine culture and sensitivity - Ceftriaxone 2 g IV daily - Acetaminophen 1 g IV every 8 hours as needed for mild pain or fever - Morphine sulfate 2 mg IV every 3 hours as needed for moderate pain - Morphine sulfate 4 mg IV every 3 hours as needed for severe pain - Pantoprazole 40 mg IV daily - Zofran 4 mg IV every 6 hours as needed - Maintenance IV normal saline - Remove catheter for voiding trial, strain urine. - Urology consult: trial passage of stone fragments. Acute kidney injury- - Creatinine downtrending this morning from admission (1.87 to 1.39), with base 0.88 - IV fluids as noted above - Holding HCTZ and losartan - Repeat laboratories in a.m. Hypertension- - Hold amlodipine, HCTZ and losartan - Hydralazine 10 mg IV every 4 hours as needed for systolic blood pressure above 160 Hyperlipidemia- - Holding atorvastatin Admission and Anticipated Discharge Date Admission Date: March 21, 2024 Subjective Chris is feeling less pain this morning, did receive pain medication however. Is experiencing some mild discomfort with catheter but urine is draining. No fever or chills. Review of Systems Review of Systems: see HPI Physical Exam Physical Exam: The patient is awake, alert and oriented 3, well developed and well nourished, normocephalic and atraumatic, lying in bed and in no acute distress. Constitutional: WD/WN, vitals as above Eyes: PERRL and reactive pupils; no conjunctival abnormality ENMT: Ears: no hearing impairment and no external ear abnormality Mouth: no oropharynx abnormality Neck: trachea midline Respiratory: normal respiratory effort; no respiratory distress and no labored breathing clear to auscultation bilaterally Cardiovascular: Rate/Rhythm: regular rate and regular rhythm Skin: no rashes Neurologic: moves all extremities Psychiatric: A+Ox3, euthymic affect Results & Data Results & Data Vital Signs (Past 12 Hours) Vital Signs Temp Pulse Pulse Pulse Resp BP BP 03/21/24 07:12 36.8 C 89 16 120/78 03/21/24 04:57 36.7 C 91 H 16 119/83 07/16/24 04:00 82 16 136/87 03/21/24 02:00 70 19 145/84 H 03/21/24 01:59 78 03/21/24 00:15 86 16 164/101 H 03/20/24 22:02 103 H 03/20/24 22:01 98 H 20 03/20/24 21:00 36.3 C L 110 H 17 166/91 H BP Pulse Ox O2 Del Method 03/21/24 07:12 96 Room Air 03/21/24 04:57 97 Room Air 03/21/24 04:00 94 Room Air 03/21/24 02:00 93 Room Air 03/21/24 01:59 03/21/24 00:15 95 Room Air 03/20/24 22:02 03/20/24 22:01 163/112 H 96 Room Air 03/20/24 21:00 95 Room Air (2) Hypertension Hypertension type: unspecified Qualified Code(s): I10 - Essential (primary) hypertension
[2024-03-21 08:29] LABS: Basophils # (auto) 0.07 K/uL (0.00-0.20); Basophils % (auto) 0.6 %; Eosinophils # (auto) 0.15 K/uL (0.00-0.50); Eosinophils % (auto) 1.3 %; Hematocrit (blood only) 39.1 % (37.0-47.0); Hemoglobin 12.8 g/dl (12.0-16.0); Immature Granulocytes # (auto) 0.04 K/uL (0.01-0.20); Immature Granulocytes % (auto) 0.3 %; Lymphocytes # (auto) 2.37 K/uL (1.20-3.40); Mean Corpuscular Hemoglobin 26.2 pg (25.0-34.0); Mean Corpuscular Hgb Conc 32.7 g/dL (32.0-36.0); Mean Platelet Volume 8.3 fL (9.4-12.4); Monocytes # (auto) 1.02 K/uL (0.11-0.59); Monocytes % (auto) 8.6 %; Neutrophils # (auto) 8.18 K/uL (1.40-6.50); Neutrophils % (auto) 69.2 %; Platelet Count 374 K/uL (130-400); RDW Coefficient of Variation 13.8 % (11.5-14.5); RDW Standard Deviation 39.8 fL (36.4-46.3); Red Blood Count 4.89 M/uL (4.20-5.40); White Blood Count 11.83 K/ul (4.8-10.8)
--- NOTE | 2024-03-21 08:36 | Urology Progress Note ---
Date of Service March 21, 2024 Assessment & Plan (1) Calculus of distal right ureter: (2) UTI (urinary tract infection): (3) ZOEY (acute kidney injury): Plan: 33-year-old female who is status post right stone treatment in [place] on 03/15/2024 with subsequent stent dislodgment and removal on 03/20/2024 presented with UTI symptoms and difficulty voiding. CT scan of the abdomen pelvis showed multiple distal right ureteral stones measuring up to approximately 2 mm which extend to the ureterovesical junction with right-sided hydronephrosis. She is afebrile and hemodynamically stable Labs reviewedcreatinine improved to 1.39, WBC improved to 11.83 Urine culture pending She denies flank pain at present Recommended continue broad-spectrum antibiotics and narrow per sensitivity data when available We discussed options for stone management including trial of passage versus right ureteral stent placement After discussion, she elects trial of passage No acute intervention today Recommend strain all urine Continue with supportive care and antibiotics Recommend close follow-up with her urologist after discharge for stone management Can perform voiding trial prior to discharge, recommend replace catheter if unable to void will sign off, please contact our service with any additional questions or concerns Admission and Anticipated Discharge Date Admission Date: March 21, 2024 Subjective Patient seen and examined at bedside this morning She is resting in bed, no acute distress She denies flank pain She is unsure if she has passed any stones due to catheter Shea intact Denies fever or chills Review of Systems Constitutional: as per Subjective / HPI Genitourinary: as per Subjective / HPI Physical Exam Constitutional: no acute distress Respiratory: normal respiratory effort; no respiratory distress and no labored breathing Gastrointestinal (Abdomen): Inspection/Auscultation: abdomen normal to inspection Musculoskeletal: Head/Neck/Chest: normocephalic Neurologic: moves all extremities and awake Psychiatric: Orientation: alert and oriented x 3 Genitourinary: Shea draining yellow urine Results & Data Vital Signs (Past 12 Hours) Vital Signs Temp Pulse Pulse Pulse Resp BP BP 03/21/24 07:12 36.8 C 89 16 120/78 03/21/24 04:57 36.7 C 91 H 16 119/83 03/21/24 04:00 82 16 136/87 03/21/24 02:00 70 19 145/84 H 03/21/24 01:59 78 03/21/24 00:15 86 16 164/101 H 03/20/24 22:02 103 H 03/20/24 22:01 98 H 20 03/20/24 21:00 36.3 C L 110 H 17 166/91 H BP Pulse Ox O2 Del Method 03/21/24 07:12 96 Room Air 03/21/24 04:57 97 Room Air 03/21/24 04:00 94 Room Air 03/21/24 02:00 93 Room Air 03/21/24 01:59 03/21/24 00:15 95 Room Air 03/20/24 22:02 03/20/24 22:01 163/112 H 96 Room Air 03/20/24 21:00 95 Room Air PG Care Time/CCT Total # of Minutes Spent Total Time Spent with Patient: Total time spent is greater than 50% in coordination of care (as documented) at patient's floor/unit and/or counseling patient: Coding Level of Care Code 30002 SUB INP/OBS CARE 09/30MIN Diagnoses Calculus of distal right ureter N20.1 UTI (urinary tract infection) N39.0 ZOEY (acute kidney injury) N17.9
[2024-03-21 08:40] LABS: BUN Creatinine Ratio 16.5 (10-20); Calcium 8.4 mg/dl (8.6-10.3); Creatinine Clr Calc Pharmacy 70.5 ml/min; Est GFR (African American) 56.8 ml/min; Potassium 3.9 mmol/L (3.5-5.1)
[2024-03-21] MEDS: PANTOprazole 40 MG in SYRINGE 0 ML IV SCH (13:06)
--- NOTE | 2024-03-21 14:27 | Discharge Summary ---
Date of Service March 21, 2024 Admission HPI Per Admitting Provider The patient is a 33-year-old female with a history of multiple kidney stones, hypertensive urgency, status post laparoscopic cholecystectomy on 02/08/2023, hypertension, hyperlipidemia and morbid obesity. She was most recently seen at [facility] 6 days ago, when she had lithotripsy for 2 10 mm kidney stones on the right side, with ureteral stent placement, and instructions to take Cipro 500 mg twice a day for 5 days, and then remove the stent via the exposed string in 2 more days from today. This morning while urinating, and then wiping afterwards, she accidentally dislodged the stent, and pulled out her remaining leg. She initially done well, but then as the day progressed developed severe right flank pain radiating to right groin, causing her to present to the ED this evening. Admission Exam Per Admitting Provider The patient is awake, alert and oriented 3, well developed and well nourished, normocephalic and atraumatic, lying in bed and in no acute distress. HEENT--PERRL, EOMI, mucous membranes and oropharynx normal Neck--supple. No JVD. No bruits. Thyroid normal, trachea midline, no adenopathy. Heart--normal S1 and S2. No murmurs, rubs or gallops. Lungs--clear bilaterally, no respiratory distress, no accessory muscle use. Abdomen--normal bowel sounds and soft. Nontender. Nondistended. Morbidly obese Extremities--No edema. Dermatologic--normal skin turgor, normal color, no abnormal lymph nodes, no rash. Neurologic--cranial nerves II through XII grossly intact. Rheumatologic--normal range of motion. Psychiatric--normal affect. Principal Diagnosis Right nephrolithiasis Discharge Exam Constitutional WD/WN, vitals as above Eyes PERRL, conjunctivae normal, anicteric sclerae ENMT external ear and nose normal, oropharynx normal Neck trachea midline, no thyromegaly Respiratory normal respiratory effort, lungs clear to auscultation Cardiovascular RRR, no murmur, no edema Gastrointestinal (Abdomen) normal bowel sounds, soft, nontender, no hepatosplenomegaly Musculoskeletal no cyanosis or clubbing, extremities motor strength 5/5 Skin no rashes, warm and dry Neurologic CN's II-XI intact bilaterally and moves all extremities Discharge Data Allergies Allergy/AdvReac Type Severity Reaction Status Date / Time No Known Allergies Allergy Verified 03/21/24 13:06 Consultations 03/21/24 03:06 ED Decision to Admit Stat 03/21/24 04:46 Consult Urology Routine Ordered Studies 03/20/24 22:49 CT abd pelvis wo con Stat Exam(s): CT ABDOMEN + PELVIS Without Contrast EXAM: CT Abdomen and Pelvis Without Intravenous Contrast CLINICAL HISTORY: hx stones, stent removed, UTI. TECHNIQUE: Axial computed tomography images of the abdomen and pelvis without intravenous contrast. CTDI is 28.14 mGy and DLP is 1437.03 mGy-cm. Automated exposure control was utilized for the study. A dose lowering technique was utilized adhering to the principles of ALARA. COMPARISON: No relevant prior studies available. FINDINGS: Lung bases: Unremarkable. No mass. No consolidation. ABDOMEN: Liver: Unremarkable. Gallbladder and bile ducts: Cholecystectomy. No ductal dilation. Pancreas: Unremarkable. No ductal dilation. Spleen: Unremarkable. No splenomegaly. Adrenals: Unremarkable. No mass. Kidneys and ureters: Multiple distal right ureteral stones noted, measuring up to 2 mm in diameter extending to the right UVJ. There is moderate proximal right ureterectasis with moderately severe right hydronephrosis noted. Periureteral fat stranding identified. Subcentimeter nephrolithiasis noted involving the mid to inferior calyces on the right. Cortical atrophy suspected on the right suggesting a component of chronicity. No left-sided hydronephrosis or nephrolithiasis. Stomach and bowel: The stomach is decompressed with minimal fluid and gas. No gastric mucosal thickening. No evidence for bowel obstruction. Evaluation of the bowel mucosa is slightly limited without contrast; however, no definite focal asymmetry suggested. PELVIS: Appendix: No findings to suggest acute appendicitis. Bladder: A Shea catheter is noted in the decompressed bladder. No bladder wall thickening or additional bladder stones noted. Reproductive: Unremarkable as visualized. ABDOMEN and PELVIS: Intraperitoneal space: Unremarkable. No free air. No significant fluid collection. Bones/joints: No acute fracture. No dislocation. Soft tissues: Unremarkable. Vasculature: Unremarkable. No abdominal aortic aneurysm. Lymph nodes: Unremarkable. No enlarged lymph nodes. IMPRESSION: Multiple distal right ureteral stones noted, measuring up to 2 mm in diameter extending to the right UVJ. There is moderate proximal right ureterectasis with moderately severe right hydronephrosis noted. Periureteral fat stranding identified. Electronically signed by: Gunnar France MD 03/21/24 02:24 AM Hospital Course (1) ZOEY (acute kidney injury): (2) Ureterolithiasis: Brittany Mao is a 33 year old female who was admitted for difficulty urinating and right kidney stones. Multiple distal right ureteral stones/moderately severe right hydronephrosis // Improving - Status post right laser lithotripsy and stent placement, accidental removal of stent early. Difficulty urinating hours post stent removal, catheter placed and patient admitted for observation. CT showed 2 mm stones in right kidney. Urology and patient elected to trial passage of stones. Discharged with Tamsulosin 0.4mg daily for one month. - Urine culture negative for growth. Not discharged with antibiotics. - Follow up with urologist regarding kidney stone management. Acute kidney injury // Resolving - Creatinine was found to be 1.87 on admission with down trend to 1.39 at discharge. - IV fluids given, likely secondary to hydronephrosis and stone management. - Follow up with PCP: BMP was ordered for creatinine recheck. - Held hydrochlorothiazide and losartan on discharge. Can resume with resolution of ZOEY. Total Time Total Time Spent Total Time Spent (In Minutes): <30 Discharge Plan Discharge Items Patient Disposition: Home - Self-Care Reason For Visit: MULTIPLE RIGHT URETERAL STONES,MOD SEV RIGHT HYDRO Discharge Diagnosis: Multiple right ureteral stones Activity: Per Instructions section Non-emergency contact: Primary Care Provider Call non-emergency contact if: you have any medication questions, your symptoms worsen and you have a fever Follow-up/Referrals: Yanni Colvin PA-C [Primary Care Provider] - Diet: Regular Ambulatory Orders: Basic Metabolic Panel (Routine) Timeframe: 3 Days Location: Determined by Patient Ordered By: Saeed Brown Attending Provider Instructions: You were admitted to the hospital for kidney stones and displaced ureteral stent. It was found that you also had an acute kidney injury (ZOEY) and swelling of the right kidney. You were treated with IV fluids and seen by urology. Options for stone management were discussed, including trial of passage versus right ureteral stent placement, and you chose trial of passage. Your ZOEY is improving, we do not have concern for infection, and you were able to urinate and pass some stone fragments when taken off the Shea. Therefore, we believe you are safe to go home. Followup with your PCP or urologist within a week to re-evaluate your kidney function. A discharge summary will be sent to ensure continuity of care. Please bring this discharge summary with you to your next office appointment so that yo ur provider can review it. A BMP has been ordered for 3 days from now Your medication list has been reviewed and reconciled to ensure accuracy and continuity of care. An updated list of all your medications is included with your hospital discharge paperwork. Please review this list closely, and make note of any changes. We are holding some medications until it is determined your kidneys have recovered. Discuss with your PCP before resuming. HOLD losartan 50mg PO daily HOLD hydrochlorothiazide (HCTZ) 12.5mg PO daily Take your medications as instructed; do not skip a dose. Make sure all of your doctors know every medicine you are taking (including awcd-kry-kqovecx medicines, vitamins, and supplements). Call your PCP before taking any new medicines because some of these may interact with your current medications, or may make your symptoms worse. Contact your PCP if your pain returns, you experience fevers, or have changes/difficulty in urination. Call 911 or go to the ER if you experience any of the following: Sudden, severe abdominal pain or nausea/vomiting Severe chest pain, or chest pain that radiates (moves) to your jaw or arm Sudden, severe shortness of breath or difficulty breathing Thank you for allowing us to participate in your care. Pending Studies at Discharge: No Stand-Alone Forms: My [facility], Smoking Cessation Medications and DC Order Prescriptions: Continued atorvastatin 10 mg tablet 10 mg PO DAILY amlodipine 10 mg tablet 10 mg PO DAILY norgestimate-ethinyl estradiol [Ypc-Md-Mbsmrf] 0.18/0.215/0.25 mg-25 mcg tablet 1 tab PO DAILY chlorthalidone 25 mg tablet 25 mg PO DAILY tamsulosin 0.4 mg capsule 0.4 mg PO DAILY aspirin 81 mg Tablet,Delayed Release (Dr/Ec) 81 mg PO DAILY Held hydrochlorothiazide 12.5 mg capsule 12.5 mg PO DAILY Hold Instructions: Resume on 03/28/24. Hold until followup appt determines ZOEY is resolved losartan 50 mg tablet 100 mg PO DAILY Hold Instructions: Resume on 03/28/24. Hold until followup appt determines ZOEY is resolved Discharge Orders: Discharge Order (Routine); Ordered 03/21/24 Ordered By: Cyril Singleton Admission Data Admit Date/Time: 03/21/24 03:26 Attending Provider: Maikel Fu Admit Provider: Micheal Ronquillo Primary Care Provider: Yanni Colvin Other Providers: Micheal Ronquillo; Nawaf Roland Other Interventions: Discharge Summary Assessment (RN) Last Done: 03/21/24 16:09 Supervising Physician Co-Signing Physician Notes I personally examined the patient and verified all santana points of history and exam, discussed case, and agree with decision making with Dr Castorena and Abdifatah Berrios MS4 Feeling much better. Would very much like to go home. Pain has resolved, she has passed many stones (she feels like as many as 14). No other new complaints. Vitals noted, in general she is awake alert pleasant no distress. HEENT normocephalic atraumatic mucous membranes moist. Breathing unlabored no accessory muscle use good effort. Skin shows no rashes no pallor or icterus. Neuro without focal deficits. Ureterolithiasisnow passing stones, ZOEY due to hydronephrosis/obstructive uropathy appears to be improvingsafe/stable for home with p.o. intake and labs as an outpatient, initial concern on infection appears to be unfoundedwhite count was probably due to demargination given that her urinary symptoms have resolved, culture is negative, and white count improved essentially overnight. Safe/stable for home, outpatient urology follow-up, labs in 2-3 days. Otherwise as above Resident Activity Tracking Resident Involvement: Resident Care Provided Care Provided: Adult Hospital Medicine Resident Supervision Co-Signing Physician Notes I also saw the patient and confirmed santana portions of the history and exam. I agree with the assessment and plan as written by the medical student and as explained in the discharge instructions.
--- NOTE | 2024-03-21 17:16 | Billing Data ---
Date of Service March 21, 2024 Coding Level of Care Code 47181 IN/OBS DISCH 30 MIN/LESS
[2024-03-21] MEDS ORDERED: cefTRIAXone SODIUM 2,000 MG/50 ML BAG IV SCH (21:00)
[2024-03-21] MEDS ORDERED: TAMSULOSIN HCL 0.4 MG CAP PO SCH (21:00)
== END 2024-03-21 16:34 | disposition home or self-care (01) ==
LOC: ED 20:53 → INTOOBSV 03-21 03:26 → 3N 03-21 03:26 → SUATTDRO 03-21 03:26 → 3N 03-21 04:25